=== PATIENT | male | born 1965 | race Caucasian/White ===

== ENCOUNTER → 2016-08-22 | Outpatient (CLI) | payer OTHER ==
[~2016-08-22] VITALS: Ht 172.7 cm; Wt 134.3 kg
[~2016-08-22] MED LIST: ALDA25TA PO; LIDOCAINE 2% INJ 100 MG/5 ML SDV (FOR ANES.) As Ordered ONE; NS 1,000 ML IV SCH; PROPOFOL 200 MG/20 ML VIAL As Ordered ONE
--- NOTE | 2016-08-22 12:32 | ROOR ---
Patient Name: Wilmer Meraz Procedure Date: 08/22/2016 12:12 PM Date of : 1965 Age: 50 Room: [facility] Gender: Male Note Status: Finalized Procedure: Colonoscopy to Cecum + Biopsy polypectomy Indications: Screening for colorectal malignant neoplasm Providers: Eric Ring MD Referring MD: 1. No Referring Physician 1. No Referring Physician, Admin. Requesting Provider: Medicines: Monitored Anesthesia Care Complications: No immediate complications. Procedure: Pre-Anesthesia Assessment: - The heart rate, respiratory rate, oxygen saturations, blood pressure, adequacy of pulmonary ventilation, and response to care were monitored throughout the procedure. The Colonoscope was introduced through the anus and advanced to the cecum, identified by appendiceal orifice and ileocecal valve. The colonoscopy was performed without difficulty. The patient tolerated the procedure well. The quality of the bowel preparation was excellent. Findings: The perianal and digital rectal examinations were normal. Non-bleeding internal hemorrhoids were found during retroflexion. The hemorrhoids were small and Grade I (internal hemorrhoids that do not prolapse). Multiple small and large-mouthed diverticula were found in the entire colon. A diminutive polyp was found in the cecum. The polyp was sessile. The polyp was removed with a cold biopsy forceps. Resection and retrieval were complete. The exam was otherwise without abnormality on direct and retroflexion views. Impression: - Non-bleeding internal hemorrhoids. - Diverticulosis in the entire examined colon. - One diminutive polyp in the cecum, removed with a cold biopsy forceps. Resected and retrieved. - The examination was otherwise normal on direct and retroflexion views. - The exam was otherwise normal to the cecum. Recommendation: - Patient has a contact number available for emergencies. The signs and symptoms of potential delayed complications were discussed with the patient. Return to normal activities tomorrow. Written discharge instructions were provided to the patient. - Discharge patient to home. - Continue present medications. - Await pathology results. - Telephone GI clinic for pathology results in 1 week. - Repeat colonoscopy in 5 years for surveillance based on pathology results. - Return to referring physician. - The findings and recommendations were discussed with the patient's family. Eric Ring MD Eric Ring MD 08/22/2016 12:32:34 PM This report has been signed electronically. Number of Addenda: 0 Note Initiated On: 08/22/2016 12:12 PM Estimated Blood Loss: Estimated blood loss: none.
[2016-08-22 13:00] VITALS: BP 132/88
== END | disposition home or self-care (01) ==
LOC: M OPP 11:16
PROVIDERS: ATTEND Internal Medicine Gastroenterology
DX: Z12.11 Encounter for screening for malignant neoplasm of colon (principal); K64.0 First degree hemorrhoids; K57.30 Diverticulosis of large intestine without perforation or abscess without bleeding; D12.0 Benign neoplasm of cecum; I10 Essential (primary) hypertension; R06.83 Snoring; Z79.899 Other long term (current) drug therapy

== ENCOUNTER 2018-06-22 10:44 | Emergency (ER) | payer OTHER ==
[2018-06-22 11:21] LABS: BASO # 0.1 10^3/uL (0.0-0.2); BASO % 1.1 % (0.0-1.0); EOS # 0.2 10^3/uL (0.0-0.50); EOS % 2.7 % (0.0-3.0); HEMATOCRIT 43.8 % (42.0-52.0); HEMOGLOBIN 15.1 g/dl (13.5-17.5); IMMATURE GRANULOCYTE % 0.7 % (0-3.0); LYMPH # 2.3 10^3/uL (1.5-4.5); MEAN CORPUSCULAR HEMOGLOBIN 31.1 pg (27.0-33.0); MEAN CORPUSCULAR HGB CONC 34.5 g/dl (32.0-36.5); MEAN CORPUSCULAR VOLUME 90.1 fl (80.0-96.0); MONO # 0.8 10^3/uL (0.0-0.8); MONO % 10.6 % (0.0-5.0); NEUTROPHILS % 53.9 % (36.0-66.0); PLATELET COUNT, AUTOMATED 253 10^3/uL (150-450); RED BLOOD COUNT 4.86 10^6/uL (4.30-6.10); RED CELL DISTRIBUTION WIDTH 12.4 % (11.5-14.5); WHITE BLOOD COUNT 7.4 10^3/uL (4.0-10.0)
[2018-06-22 11:31] LABS: INR 0.95; PROTHROMBIN TIME 12.8 SECONDS (12.1-14.4)
[2018-06-22 11:32] LABS: PARTIAL THROMBOPLASTIN TIME 25.8 SECONDS (25.4-37.6)
[2018-06-22 12:03] LABS: ALBUMIN 3.7 GM/DL (3.2-5.2); ALBUMIN/GLOBULIN RATIO 1.16 (1.00-1.93); ALKALINE PHOSPHATASE 94 U/L (45-117); ALT/SGPT 45 U/L (12-78); ANION GAP 7 MEQ/L (8-16); AST/SGOT 20 U/L (7-37); BILIRUBIN,DIRECT < 0.1 MG/DL (0.0-0.2); BILIRUBIN,TOTAL 0.3 MG/DL (0.2-1.0); BLOOD UREA NITROGEN 11 MG/DL (7-18); CARBON DIOXIDE LEVEL 27 MEQ/L (21-32); CHLORIDE LEVEL 106 MEQ/L (98-107); CPK CREATINE PHOSPHOKINASE 126 U/L (39-308); CREATININE FOR GFR 0.86 MG/DL (0.70-1.30); GLOMERULAR FILTRATION RATE > 60.0 (>56); GLUCOSE, FASTING 96 MG/DL (70-100); LIPASE 101 U/L (73-393); MB/CK RELATIVE INDEX 0.79 (< OR =4); POTASSIUM SERUM 4.1 MEQ/L (3.5-5.1); SODIUM LEVEL 140 MEQ/L (136-145); TOTAL PROTEIN 6.9 GM/DL (6.4-8.2); TROPONIN I < 0.02 NG/ML (< 0.10)
[2018-06-22 15:17] LABS: CPK CREATINE PHOSPHOKINASE 119 U/L (39-308); MB/CK RELATIVE INDEX 0.92 (< OR =4); TROPONIN I < 0.02 NG/ML (< 0.10)
[2018-06-22] MEDS: ASPIRIN 81 MG CHEW TABLET PO (16:07)
== END 2018-06-22 16:12 | disposition home or self-care (01) ==
LOC: M ED 10:44
DX: R07.89 Other chest pain (principal); Z82.3 Family history of stroke; M25.551 Pain in right hip; M25.561 Pain in right knee
CPT/HCPCS: 71046

== ENCOUNTER → 2019-08-16 | Outpatient (CLI) | payer OTHER ==
[~2019-08-16] MED LIST changes: -ALDA25TA PO; +ASPI81TA85 PO; -LIDOCAINE 2% INJ 100 MG/5 ML SDV (FOR ANES.) As Ordered ONE; -NS 1,000 ML IV SCH; -PROPOFOL 200 MG/20 ML VIAL As Ordered ONE; +SPIR1TAB34 PO
[2019-08-16 07:20] LABS: BASO # 0.1 10^3/uL (0.0-0.2); EOS # 0.2 10^3/uL (0.0-0.5); EOS % 3.1 % (0.0-3.0); HEMATOCRIT 48.8 % (42.0-52.0); HEMOGLOBIN 15.9 g/dl (13.5-17.5); LYMPH % 32.5 % (24.0-44.0); MEAN CORPUSCULAR HEMOGLOBIN 30.1 pg (27.0-33.0); MEAN CORPUSCULAR HGB CONC 32.6 g/dl (32.0-36.5); MEAN CORPUSCULAR VOLUME 92.2 fl (80.0-96.0); MONO # 0.7 10^3/uL (0.0-0.8); MONO % 10.6 % (0.0-5.0); NEUTROPHILS # 3.3 10^3/uL (1.5-8.5); NEUTROPHILS % 52.3 % (36.0-66.0); PLATELET COUNT, AUTOMATED 246 10^3/uL (150-450); RED BLOOD COUNT 5.29 10^6/uL (4.30-6.10); WHITE BLOOD COUNT 6.2 10^3/uL (4.0-10.0)
[2019-08-16 07:43] LABS: BLOOD UREA NITROGEN 14 MG/DL (7-18); CARBON DIOXIDE LEVEL 27 MEQ/L (21-32); CHLORIDE LEVEL 105 MEQ/L (98-107); CREATININE FOR GFR 1.01 MG/DL (0.70-1.30); GLOMERULAR FILTRATION RATE > 60.0 (>56); GLUCOSE, FASTING 98 MG/DL (70-100); POTASSIUM SERUM 4.1 MEQ/L (3.5-5.1); SODIUM LEVEL 139 MEQ/L (136-145)
== END ==
LOC: M LAB 06:46
PROVIDERS: ATTEND Physician Assistant
DX: E66.9 Obesity, unspecified (principal)

== ENCOUNTER → 2020-07-18 | Outpatient (CLI) | payer OTHER ==
[~2020-07-18] MED LIST changes: -ASPI81TA85 PO; +ASPI81TA86 PO
--- NOTE | 2020-07-18 16:06 | REP ---
INDICATION: SCIATICA RIGHT SIDE. COMPARISON: None. TECHNIQUE: Five views. FINDINGS: Lumbar vertebral body heights are preserved. There are bilateral pars interarticularis defects at the L3 vertebral body and this allows a subtle 2 mm L3-L4 spondylolisthesis. There is degenerative disc disease at L3-4 as well with disc space narrowing and anterior osteophyte formation. Mild degenerative narrowing is seen at the L4-5 disc. Other disc spaces are preserved. Sacrum and SI joints are intact. Pedicles and posterior elements are otherwise intact. There are dystrophic calcifications in the prostate. There is advanced osteoarthritis affecting the right hip with large subcortical cyst formation and osteophyte formation in the femoral head on the right. Some subcortical cyst formation is seen in the acetabulum as well. Psoas margins are symmetric. Bowel gas pattern is unremarkable. There is minimal sclerotic change of the SI joints. IMPRESSION: Bilateral L3 spondylolysis with a grade 1 2 mm L3-4 spondylolisthesis and degenerative disc disease at this level. Mild degenerative disc changes are noted at L4-5 as well. <Electronically signed by Nathaniel Weiss > 07/18/20 [id number]
== END ==
LOC: M WUC 11:34
PROVIDERS: ATTEND Internal Medicine
DX: M54.31 Sciatica, right side (principal); M51.36 Other intervertebral disc degeneration, lumbar region; M47.896 Other spondylosis, lumbar region; M43.16 Spondylolisthesis, lumbar region

== ENCOUNTER → 2020-08-26 | Outpatient (CLI) | payer SELFPAY | LOC: M LABSMTC 08:06 | PROVIDERS: ATTEND Pediatrics | DX: Z20.822 Contact with and (suspected) exposure to COVID-19 (principal) ==

== ENCOUNTER 2020-08-30 09:08 | Emergency (ER) | payer OTHER ==
[~2020-08-30] VITALS: Ht 172.7 cm; Wt 140.2 kg
[2020-08-30] MEDS ORDERED: IBUP200C33 PO (09:22)
--- OUTSIDE RECORDS SUMMARY | 2020-08-30 09:22 | CCD | Continuity of Care Document ---
Author Author Wilmer VALADEZ [facility] Organization Unknown Address [address] [place] [address] Phone [phone] Problems Description No Information Available Social History Type Date Description Comments Sex Unknown Smokeless Tobacco Former Smokeless Tobacco User [id number] ETOH Use Rarely consumes beer 12 BEER A Y EAR Tobacco Use End: 08/10/06 Formerly used smokeless tobacco Recreational Drug Use Denies Drug Use Allergies, Adverse Reactions, Alerts Description No Known Drug Allergies Medications Active Medications SIG Qnty Indications Ordering Provide r Date Prednisone 10mg Tablets 2 po daily 20tabs Abiel Plascencia M.D. 08/01/2020 Cyclobenzaprine HCL 10mg Tablets take one tablet by mouth at bedtime as needed 30tabs Katherine Plascencia M.D. 07/18/2020 History Medications Naprosyn 500mg Tablets 1 by mouth twice a day 60tabs Abiel Plascencia M.D. 07/18/20 20 - 08/01/2020 Immunizations Description No Information Available Vital Signs Date Vital Result Comment 08/15/2020 9:25am BP Systolic 134 mmHg BP Diastolic 90 mmHg Body Temperature 97.8 F Heart Rate 103 /min Respiratory Rate 16 /min Height 68 inches 5'8" Weight 308.00 lb [place] Body Weight 154 lb BMI (Body Mass Index) 46.8 kg/m2 O2 % BldC Oximetry 97 % 08/01/2020 10:58am BP Systolic 128 mmHg BP Diastolic 88 mmHg Body Temperature 98.6 F Heart Rate 88 /min Respiratory Rate 18 /min Height 68 inches 5'8" Weight 306.00 lb [place] Body Weight 154 lb BMI (Body Mass Index) 46.5 kg/m2 O2 % BldC Oximetry 97 % Results Test Acquired Date Facility Test Result H/L Range Note Laboratory test finding 08/15/2020 [facility] PSA Total <pending> CBC 08/15/2020 [facility] WBC 6.2 10E3/uL 4.1 - 10.9 1 RBC 4.95 10E6/uL 4.20 - 6.30 HGB 15.6 g/dL 12.0 - 18.0 HCT 45.3 % 37.0 - 51.0 MCV 91.5 fL 80.0 - 97.0 MCH 31.5 pg 26.0 - 32.0 MCHC 34.4 g/dL 31.0 - 36.0 PLT 228 10E3/uL 140 - 440 RDW-CV 13.2 % 11.5 - 14.5 Lym% 25.2 % 10.0 - 58.5 Neut% 65.9 % 37.0 - 92.0 MXD% 8.9 % 0.1 - 24.0 Lym# 1.6 10E3/uL 0.6 - 4.1 Neut# 4.0 % 2.0 - 7.8 MXD# 0.6 10E3/uL 0.0 - 1.8 MPV 10.5 fL 9.0 - 13.0 CMP 08/15/2020 [facility] Glu 110 mg/dL 70 - 110 BUN 12 mg/dL 8 - 23 Creat 0.9 mg/dL 0.7 - 1.2 BUN/Creatinine Ratio 13.3 CALC Na 138 mmol/L 136 - 145 K 4.1 mmol/L 3.5 - 5.1 CL 104.8 mmol/L 98.0 - 107.0 Co2 21.0 mmol/L Low 22.0 - 29.0 CA 9.0 mg/dL 8.6 - 10.2 TP 6.6 g/dL 6.6 - 8.7 Alb 4.3 g/dL 3.5 - 5.2 A/G Ratio 1.9 CALC Globulin 2.3 CALC Alp 83.1 U/L 40 - 129 Alt (SGPT) 43 U/L High 0 - 41 Ast (Sgot) 23 U/L 0 - 40 Tbili 0.54 mg/dL 0.0 - 1.2 Osmolality-Calculated 277.0 CALC Anion Gap 17 mmol/L eGFR 112 # Calc 2 eGFR Non-Afr. [place]an 96 # Calc 3 Lipid Panel 08/15/2020 [facility] Chol 208 mg/dL High 0 - 200 Trig 166 mg/dL 35 - 200 HDL 46 mg/dL 35 - 55 LDL_C 128 Calc 75 - 129 Cho/HDL Ratio 4.5 CALC 1 NORMAL RANGES Age WBC RBC HGB HCT MCV PLT Adult M 4.1-10.9 4.20-6.30 12.0-18.0 37.0-51.0 80-97 140-440 Adult F 4.1-10.9 4.04-5.48 12.0-18.0 37.0-51.0 80-97 140-440 0 -1 Yr 5.0-20.0 3.9-5.9 15-18 MV: 44 MV: 91 MV: 277 2-9 Yr. 6.0-17.0 3.8-5.4 11-13 MV: 37 MV: 78 MV: 300 10 Yrs. 5.0-13.0 3.8-5.4 12-15 MV: 39 MV: 80 MV: 250 NOTE: * FOR ADULT BLACK MALES AND FEMALES, NORMAL WBC IS 2.9-7.7 K/ML * FOR ADULT BLACK MALES AND FEMALES, NORMAL RBC,HGB, AND HCT IS 5% LESS SOURCE FOR DATA: [employer] 1800 OPERATION MANUAL( AUTOMATED BLOOD COUNTS AND DIFF.) APPENDIX B-3 CHRONIC KIDNEY DISEASE STAGING PER NKF: MALE GFR INTERPRETATION: 20-49 YRS: >60 mL/min Normal 50-59 YRS: >56 mL/min Normal 60-69 YRS: >49 mL/min Normal 70-79 YRS: >42 mL/min Normal 80 and above >35 mL/min Normal FEMALE GRF INTERPRETATION: 20-39 YRS: >60 mL/min Normal 40-49 YRS: >58 mL/min Normal 50-59 YRS: >51 mL/min Normal 60-69 YRS: >45 mL/min Normal 70-79 YRS: >39 mL/min Normal 80 and above >32 mL/min NormalCLASSIFICATION CHOLESTEROL FOR ADULTS CHILDREN/ADOLESCENTS* DESIRABLE: <200 MG/DL <170 MG/DL BORDER-LINE HIGH RISK: 200-239 MG/DL 170-199 MG/DL HIGH RISK: >240 MG/DL >200 MG/DL CLASS. FOR PRIMARY LDL CHOL PREVENTION: LDL CHOL-CHILD/ADOLESCENTS* DESIRABLE: <130 MG/DL <110 MG/DL BORDERLINE-HIGH RISK: 130-159 MG/DL 110-129 MG/DL HIGH RISK: >160 MG/DL >130 MG/DL *CHILDREN AND ADOLESCENTS REPRESENTS INDIVIDUALA AGED 2-19 YEARS EXCLUSIVE. 2 CKD-EPI 3 CKD-EPI Procedures Description No Information Available Medical Devices Description No Information Available Encounters Type Date Location Provider Dx Diagnosis Office Visit 08/15/2020 9:30a [facility] Martin Valadez, A Z00.01 Encounter for general adult medical exam w abnormal findings E66.9 Obesity, unspecified R35.1 Nocturia R03.0 Elevated blood-pressure read ing, w/o diagnosis of htn Office Visit 08/01/2020 9:15a [facility] Abiel Plascencia M. D. M54.31 Sciatica, right side Office Visit 07/18/2020 11:30a [facility] Abiel Plascencia M. D. M54.31 Sciatica, right side Assessments Date Code Description Provider 08/15/2020 Z00.01 Encounter for genera l adult medical examination with abnormal findings Martin Valadez, RPA 08/15/2020 E66.9 Obesity, unspecified Paulo Valadez, RPA 08/15/2020 R35.1 Nocturia Martin Valadez, RPA 08/15/2020 R03.0 Elevated blood-press ure reading, without diagnosis of hypertension Martin Valadez, RPA 08/01/2020 M54.31 Sciatica, right side Katherine Plascencia M.D. 07/18/2020 M54.31 Sciatica, right side Temo, S cott H, M.D. Plan of Treatment Future Appointment(s):* 11/21/2020 10:00 am - Martin Valadez RPA at [facility] Functional Status Description No Information Available Mental Status Description No Information Available Referrals Refer to Reason for Referral Status Appt Date [facility] Orthopedics right thigh pain- eval and rx Sent [address] [place] [address] [phone]
--- OUTSIDE RECORDS SUMMARY | 2020-08-30 09:22 | CCD | Continuity of Care Document ---
Author Author Wilmer VALADEZ [facility] Organization Unknown Address [address] [address] Phone [phone] Problems Description No Information Available Social History Type Date Description Comments Sex Unknown Smokeless Tobacco Former Smokeless Tobacco User [id number] ETOH Use Rarely consumes beer 12 BEER [...] Height 68 inches 5'8" Weight 308.00 lb [place] Body Weight 154 lb BMI (Body Mass Index) 46.8 kg/m2 O2 % BldC Oximetry 97 % 08/01/2020 10:58am BP Systolic 128 mmHg BP Diastolic 88 mmHg Body Temperature 98.6 F Heart Rate 88 /min Respiratory Rate 18 /min Height 68 inches 5'8" Weight 306.00 lb [place] Body Weight 154 lb BMI (Body Mass Index) 46.5 kg/m2 O2 % BldC Oximetry 97 % Results Test Acquired Date Facility Test Result H/L Range Note Laboratory test finding 08/15/2020 [facility] PSA, Total 0.60 ng/mL 0.0 - 4.0 CBC 08/15/2020 [facility] WBC 6.2 10E3/uL 4.1 [...] eGFR 112 # Calc 2 eGFR Non-Afr. [place] 96 # Calc 3 Lipid Panel 08/15/2020 [...] HCT IS 5% LESS SOURCE FOR DATA: [employer] 1800 OPERATION MANUAL( AUTOMATED BLOOD COUNTS AND [...] Provider Dx Diagnosis Office Visit 08/15/2020 9:30a [facility] Martin Valadez, A Z00.01 Encounter for general adult medical exam w abnormal findings E66.9 Obesity, unspecified R35.1 Nocturia R03.0 Elevated blood-pressure read ing, w/o diagnosis of htn Office Visit 08/01/2020 9:15a [facility] Abiel Plascencia M. D. M54.31 Sciatica, right side Office Visit 07/18/2020 11:30a [facility] Abiel Plascencia M. D. M54.31 Sciatica, [...] Katherine Plascencia M.D. 07/18/2020 M54.31 Sciatica, right Katherine Townsend M.D. Plan of Treatment Future Appointment(s):* 11/21/2020 10:00 am - Martin Valadez RPA at [facility] Functional Status Description No Information Available Mental Status Description No Information Available Referrals Refer to Reason for Referral Status Appt Date [facility] Orthopedics right thigh pain- eval and rx Sent [address] [facility] [address] [place] [address] [phone]
--- OUTSIDE RECORDS SUMMARY | 2020-08-30 09:22 | CCD | Continuity of Care Document ---
Author Author Wilmer HAN M.D. Organization Unknown Address [address] [address] Phone [phone] Problems Description No Information Available Social History Type Date Description Comments Sex Unknown Smokeless Tobacco Former Smokeless Tobacco User [id number] ETOH Use Rarely consumes beer 12 BEER A Y EAR Tobacco Use End: 08/10/06 Formerly used smokeless tobacco Recreational Drug Use Denies Drug Use Allergies, Adverse Reactions, Alerts Description No Known Drug Allergies Medications Active Medications SIG Qnty Indications Ordering Provide r Date Prednisone 10mg Tablets 4 by mouth daily x2 then 3 daily x2 then 2 daily x2 then one daily 20tabs Abiel Han M.D. 08/01/2020 Cyclobenzaprine HCL 10mg Tablets take one tablet by mouth at bedtime as needed 30tabs Katherine Han M.D. 07/18/2020 History Medications Naprosyn 500mg Tablets 1 by mouth twice a day 60tabs Abiel Han M.D. 07/18/20 20 - 08/01/2020 Immunizations Description No Information Available Vital Signs Date Vital Result Comment 08/01/2020 10:58am BP Systolic 128 mmHg BP Diastolic 88 mmHg Body Temperature 98.6 F Heart Rate 88 /min Respiratory Rate 18 /min Height 68 inches 5'8" Weight 306.00 lb [place] Body Weight 154 lb BMI (Body Mass Index) 46.5 kg/m2 O2 % BldC Oximetry 97 % 07/18/2020 11:49am BP Systolic 124 mmHg BP Diastolic 92 mmHg Body Temperature 98.3 F Heart Rate 90 /min Respiratory Rate 18 /min Height 68 inches 5'8" Weight 310.00 lb [place] Body Weight 154 lb BMI (Body Mass Index) 47.1 kg/m2 O2 % BldC Oximetry 98 % Results Description No Information Available Procedures Description No Information Available Medical Devices Description No Information Available Encounters Type Date Location Provider Dx Diagnosis Office Visit 08/01/2020 9:15a [place] [facility] Abiel Han M. D. M54.31 Sciatica, right side Office Visit 07/18/2020 11:30a [place] [facility] Abiel Han M. D. M54.31 Sciatica, right side Assessments Date Code Description Provider 08/01/2020 M54.31 Sciatica, right side Katherine Han M.D. 07/18/2020 M54.31 Sciatica, right side Katherine Han M.D. Plan of Treatment Future Appointment(s):* 08/15/2020 9:30 am - Martin Valadez RPA at [facility] Functional Status Description No Information Available Mental Status Description No Information Available Referrals Refer to Reason for Referral Status Appt Date [facility] Orthopedics right thigh pain- eval and rx Sent [address] [place] [address] [phone]
--- OUTSIDE RECORDS SUMMARY | 2020-08-30 09:22 | CCD | Continuity of Care Document ---
Author Author Wilmer HAN M.D. Organization Unknown Address [address] [address] Phone [phone] Problems Description No Information Available Social History Type Date Description Comments Sex Unknown Smokeless Tobacco Former Smokeless Tobacco User [id number] ETOH Use Rarely consumes beer 12 BEER A Y EAR Tobacco Use End: 08/10/06 Formerly used smokeless tobacco Recreational Drug Use Denies Drug Use Allergies, Adverse Reactions, Alerts Description No Known Drug Allergies Medications Active Medications SIG Qnty Indications Ordering Provide r Date Naprosyn 500mg Tablets 1 by mouth twice a day 60tabs Abiel Han M.D. 07/18/20 20 Cyclobenzaprine HCL 10mg Tablets take one tablet by mouth at bedtime as needed 30tabs Katherine Han M.D. 07/18/2020 Immunizations Description No Information Available Vital Signs Date Vital Result Comment 07/18/2020 11:49am BP Systolic 124 mmHg BP Diastolic 92 mmHg Body Temperature 98.3 F Heart Rate 90 /min Respiratory Rate 18 /min Height 68 inches 5'8" Weight 310.00 lb [place] Body Weight 154 lb BMI (Body Mass Index) 47.1 kg/m2 O2 % BldC Oximetry 98 % 08/01/2019 2:59pm BP Systolic 136 mmHg BP Diastolic 80 mmHg Body Temperature 97.8 F Heart Rate 88 /min Respiratory Rate 18 /min Height 68 inches 5'8" Weight 281.00 lb [place] Body Weight 154 lb BMI (Body Mass Index) 42.7 kg/m2 O2 % BldC Oximetry 98 % Results Description No Information Available Procedures Description No Information Available Medical Devices Description No Information Available Encounters Type Date Location Provider Dx Diagnosis Office Visit 07/18/2020 11:30a [place] [facility] Abiel Han M. D. M54.31 Sciatica, right side Assessments Date Code Description Provider 07/18/2020 M54.31 Sciatica, right side Katherine Han M.D. Plan of Treatment Future Appointment(s):* 08/15/2020 9:30 am - Martin Valadez RPA at [facility] Functional Status Description No Information Available Mental Status Description No Information Available Referrals Description No Information Available
--- OUTSIDE RECORDS SUMMARY | 2020-08-30 09:22 | CCD | Continuity of Care Document ---
Author Author Wilmer HAN M.D. Organization Unknown Address [address] [address] Phone [phone] Problems Description No Information Available Social History Type Date Description Comments Sex Unknown Smokeless Tobacco Former Smokeless Tobacco User [id number] ETOH Use Rarely consumes beer 12 BEER [...] Height 68 inches 5'8" Weight 310.00 lb [place] Body Weight 154 lb BMI (Body Mass Index) 47.1 kg/m2 O2 % BldC Oximetry 98 % 08/01/2019 2:59pm BP Systolic 136 mmHg BP Diastolic 80 mmHg Body Temperature 97.8 F Heart Rate 88 /min Respiratory Rate 18 /min Height 68 inches 5'8" Weight 281.00 lb [place] Body Weight 154 lb BMI (Body Mass Index) 42.7 kg/m2 O2 % BldC Oximetry 98 % Results Description No Information Available Procedures Description No Information Available Medical Devices Description No Information Available Encounters Type Date Location Provider Dx Diagnosis Office Visit 08/01/2020 9:15a [place] [facility] Abiel Han M. D. M54.31 Sciatica, right side Office Visit 07/18/2020 11:30a [place] [facility] Abiel Han M. D. M54.31 Sciatica, right side Assessments Date Code Description Provider 08/01/2020 M54.31 Sciatica, right side Katherine Han M.D. 07/18/2020 M54.31 Sciatica, right side Katherine Han M.D. Plan of Treatment Future Appointment(s):* 08/15/2020 9:30 am - Martin Valadez RPA at [facility] Functional Status Description No Information Available Mental Status Description No Information Available Referrals Refer to Reason for Referral Status Appt Date [facility] Orthopedics right thigh pain- eval and rx Created [address] [place] [address] [phone]
--- OUTSIDE RECORDS SUMMARY | 2020-08-30 09:22 | CCD | Continuity of Care Document ---
Author Author Wilmer VALADEZ [facility] Organization Unknown Address [address] [place] [address] Phone [phone] Problems Description No Information Available Social History Type Date Description Comments Sex Unknown Smokeless Tobacco Former Smokeless Tobacco User [phone] ETOH Use Rarely consumes beer 12 BEER A Y EAR Tobacco Use End: 08/10/06 Formerly used smokeless tobacco Recreational Drug Use Denies Drug Use Allergies, Adverse Reactions, Alerts Description No Known Drug Allergies Medications Active Medications SIG Qnty Indications Ordering Provide r Date Prednisone 10mg Tablets 2 po daily 20tabs Abiel Plascencai M.D. 08/01/2020 Cyclobenzaprine HCL 10mg Tablets take [...] Height 68 inches 5'8" Weight 308.00 lb [place] Body Weight 154 lb BMI (Body Mass Index) 46.8 kg/m2 O2 % BldC Oximetry 97 % 08/01/2020 10:58am BP Systolic 128 mmHg BP Diastolic 88 mmHg Body Temperature 98.6 F Heart Rate 88 /min Respiratory Rate 18 /min Height 68 inches 5'8" Weight 306.00 lb [place] Body Weight 154 lb BMI (Body Mass [...] eGFR 112 # Calc 2 eGFR Non-Afr. [place]ian 96 # Calc 3 Lipid Panel 08/15/2020 [...] HCT IS 5% LESS SOURCE FOR DATA: [employer] 1800 OPERATION MANUAL( AUTOMATED BLOOD COUNTS AND [...] Provider Dx Diagnosis Office Visit 08/15/2020 9:30a [place] [facility] Martin Valadez, A Z00.01 Encounter for general adult medical exam w abnormal findings E66.9 Obesity, unspecified R35.1 Nocturia R03.0 Elevated blood-pressure read ing, w/o diagnosis of htn Office Visit 08/01/2020 9:15a [place] [facility] Abiel Plascencia M. D. M54.31 Sciatica, right side Office Visit 07/18/2020 11:30a [place] [facility] Abiel Plascencia M. D. M54.31 Sciatica, [...] 10:00 am - Martin Valadez RPA at [place] [facility] Functional Status Description No Information Available Mental Status Description No Information Available Referrals Refer to Reason for Referral Status Appt Date [facility] Orthopedics right thigh pain- eval and rx Sent [address] [place] [address] [phone]
--- OUTSIDE RECORDS SUMMARY | 2020-08-30 09:22 | CCD | Continuity of Care Document ---
Author Author Wilmer VALADEZ [facility] Unknown Address [address] [address] Phone [phone] Problems Description No Information Available Social History Type Date Description Comments Sex Unknown Smokeless Tobacco Former Smokeless Tobacco User [id number] ETOH Use Rarely consumes beer 12 BEER [...] Height 68 inches 5'8" Weight 308.00 lb [place] Body Weight 154 lb BMI (Body Mass Index) 46.8 kg/m2 O2 % BldC Oximetry 97 % 08/01/2020 10:58am BP Systolic 128 mmHg BP Diastolic 88 mmHg Body Temperature 98.6 F Heart Rate 88 /min Respiratory Rate 18 /min Height 68 inches 5'8" Weight 306.00 lb [place] Body Weight 154 lb BMI (Body Mass Index) 46.5 kg/m2 O2 % BldC Oximetry 97 % Results Description No Information Available Procedures Description No Information Available Medical Devices Description No Information Available Encounters Type Date Location Provider Dx Diagnosis Office Visit 08/01/2020 9:15a [place] [facility] Abiel Plascencia M. D. M54.31 Sciatica, right side Office Visit 07/18/2020 11:30a [place] [facility] Abiel Plascencia M. D. M54.31 Sciatica, [...] Plascencia M.D. 07/18/2020 M54.31 Sciatica, right side Katherine Plascencia M.D. Plan of Treatment No Information Available Functional Status Description No Information Available Mental Status Description No Information Available Referrals Refer to Reason for Referral Status Appt Date [facility] Orthopedics right thigh pain- eval and rx Sent [address] [place] [address] [phone]
--- OUTSIDE RECORDS SUMMARY | 2020-08-30 09:23 | CCD | Continuity of Care Document ---
Author Author Wilmer HAN M.D. Organization Unknown Address [address] [place] [address] Phone [phone] Problems Description No Information Available Social History Type Date Description Comments Sex Unknown Smokeless Tobacco Former Smokeless Tobacco User [id number] ETOH Use Rarely consumes beer 12 BEER [...] Available Vital Signs Date Vital Result Comment 08/01/2019 2:59pm BP Systolic 136 mmHg BP Diastolic 80 mmHg Body Temperature 97.8 F Heart Rate 88 /min Respiratory Rate 18 /min Height 68 inches 5'8" Weight 281.00 lb [place] Body Weight 154 lb BMI (Body Mass Index) 42.7 kg/m2 O2 % BldC Oximetry 98 % Results Description No Information Available Procedures Description No Information Available Medical Devices Description No Information Available Encounters Type Date Location Provider Dx Diagnosis Office Visit 07/18/2020 11:30a [place] [facility] Abiel Han M. D. M54.31 Sciatica, right side Assessments Date Code Description Provider 07/18/2020 M54.31 Sciatica, right side Katherine Han M.D. Plan of Treatment Future Appointment(s):* 08/15/2020 9:30 am - Martin Valadez RPA at [facility] Functional Status Description No Information Available Mental Status Description No Information Available Referrals Description No Information Available
--- OUTSIDE RECORDS SUMMARY | 2020-08-30 09:23 | CCD | Continuity of Care Document ---
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 Name Role Phone [employer] AUTM [phone] Problems Active Problems Provider Date Generalized abdominal pain Miroslava Mendoza Onset: 2009 Social History Type Date Description Comments Sex Unknown Smokeless Tobacco Quit 2006 ETOH Use Rarely consumes alcohol Tobacco Use Start: Unknown Patient has never smoked Smoking Status Reviewed: 06/07/20 Patient has never smoked Allergies, Adverse Reactions, Alerts Description No Known Drug Allergies Medications Active Medications SIG Qnty Indications Ordering Provide r Date Ibuprofen 200mg Capsules last dose last night Unknown Dayquil last dose 6:30 am today Unknown 0 Night Time Cold/Flu Relief 15-6.25-325mg Capsules Unknown Immunizations Description No Information Available Vital Signs Date Vital Result Comment 06/07/2020 1:22pm BP Systolic 149 mmHg BP Diastolic 102 mmHg Heart Rate 84 /min Respiratory Rate 16 /min O2 % BldC Oximetry 97 % Body Temperature 97.8 F Weight 270.00 lb Height 68 inches 5'8" BMI (Body Mass Index) 41.0 kg/m2 Pain Level 3 07/19/2018 8:24am BP Systolic 146 mmHg BP Diastolic 96 mmHg Heart Rate 88 /min O2 % BldC Oximetry 96 % Body Temperature 98.6 F Weight 275.00 lb Height 68 inches 5'8" BMI (Body Mass Index) 41.8 kg/m2 Pain Level 5 Results Description No Information Available Procedures Description No Information Available Medical Devices Description No Information Available Encounters Type Date Location Provider Dx Diagnosis Office Visit 06/07/2020 1:45p Main Office JOHNNY Henriquez J06 .9 Acute upper respiratory infection, unspecified Z20.828 Contact w and exposure to ot h viral communicable diseases Assessments Date Code Description Provider 06/07/2020 J06.9 Acute upper respiratory infectio n, unspecified JOHNNY Henriquez 06/07/2020 Z20.828 Contact with and (figueroa spected) exposure to other viral communicable diseases JOHNNY Henriquez Plan of Treatment No Information Available Functional Status Description No Information Available Mental Status Description No Information Available Referrals Description No Information Available
--- OUTSIDE RECORDS SUMMARY | 2020-08-30 09:23 | CCD ---
Author Author [facility] Organization [facility] Address Unknown Phone Unavailable Care Team Providers Care Cv/Cvn Cv Tsc System Operator Name Role Phone Mariaa HAN MD Unavailable Unavailable Mariaa HAN MD Unavailable Unavailable Mariaa HAN MD Unavailable Unavailable Mairaa HAN MD Unavailable Unavailable Mariaa HAN MD Unavailable Unavailable Mariaa HAN MD Unavailable Unavailable Mariaa HAN MD Unavailable Unavailable Mariaa HAN MD Unavailable Unavailable Mariaa HAN MD Unavailable Unavailable Mariaa HAN MD Unavailable Unavailable Mariaa HAN MD Unavailable Unavailable Mariaa HAN MD Unavailable Unavailable Mariaa HAN MD Unavailable Unavailable Mariaa HAN MD Unavailable Unavailable Mariaa HAN MD Unavailable Unavailable Mariaa HAN MD Unavailable Unavailable Mariaa HAN MD Unavailable Unavailable Mariaa HAN MD Unavailable Unavailable Mariaa HAN MD Unavailable Unavailable Mariaa HAN MD Unavailable Unavailable Mariaa HAN MD Unavailable Unavailable Mariaa HAN MD Unavailable Unavailable Mariaa HAN MD Unavailable Unavailable Mariaa HAN MD Unavailable Unavailable Mariaa HAN MD Unavailable Unavailable Mariaa HAN MD Unavailable Unavailable Mariaa HAN MD Unavailable Unavailable Mariaa HAN MD Unavailable Unavailable Mariaa HAN MD Unavailable Unavailable Mariaa HAN MD Unavailable Unavailable Mariaa HAN MD Unavailable Unavailable Mariaa HAN MD Unavailable Unavailable Mariaa HAN MD Unavailable Unavailable Mariaa HAN MD Unavailable Unavailable Mariaa HAN MD Unavailable Unavailable Mariaa HAN MD Unavailable Unavailable Mariaa HAN MD Unavailable Unavailable Mariaa HAN MD Unavailable Unavailable Mariaa HAN MD Unavailable Unavailable Mariaa HAN MD Unavailable Unavailable Mariaa HAN MD Unavailable Unavailable Mariaa HAN MD Unavailable Unavailable Mariaa HAN MD Unavailable Unavailable Mariaa HAN MD Unavailable Unavailable Mariaa HAN MD Unavailable Unavailable Mariaa HAN MD Unavailable Unavailable Mariaa HAN MD Unavailable Unavailable Mariaa HAN MD Unavailable Unavailable Mariaa HAN MD Unavailable Unavailable Mariaa HAN MD Unavailable Unavailable Mariaa HAN MD Unavailable Unavailable Mariaa HAN MD Unavailable Unavailable Mariaa HAN MD Unavailable Unavailable Mariaa HAN MD Unavailable Unavailable Mariaa HAN MD Unavailable Unavailable Mariaa HAN MD Unavailable Unavailable Mariaa HAN MD Unavailable Unavailable Mariaa HAN MD Unavailable Unavailable Maraia HAN MD Unavailable Unavailable Mariaa HAN MD Unavailable Unavailable Mariaa HAN MD Unavailable Unavailable Mariaa HAN MD Unavailable Unavailable Mariaa HAN MD Unavailable Unavailable Mariaa HAN MD Unavailable Unavailable Mariaa HAN MD Unavailable Unavailable Mariaa HAN MD Unavailable Unavailable Mariaa HAN MD Unavailable Unavailable Mariaa HAN MD Unavailable Unavailable Mariaa HAN MD Unavailable Unavailable Mariaa HAN MD Unavailable Unavailable Mariaa HAN MD Unavailable Unavailable Mariaa HAN MD Unavailable Unavailable Mariaa HAN MD Unavailable Unavailable Mariaa HAN MD Unavailable Unavailable Mariaa HAN MD Unavailable Unavailable Mariaa HAN MD Unavailable Unavailable Allyson, D William PA Unavailable Unavailable Allyson, D William PA Unavailable Unavailable Allyson, D William PA Unavailable Unavailable Allyson, D William PA Unavailable Unavailable Allyson, D William PA Unavailable Unavailable Allyson, D William PA Unavailable Unavailable Allyson, D William PA Unavailable Unavailable Allyson, D William PA Unavailable Unavailable Allyson, D William PA Unavailable Unavailable Allyson, D William PA Unavailable Unavailable Allyson, D William PA Unavailable Unavailable Allyson, D William PA Unavailable Unavailable Allyson, D William PA Unavailable Unavailable Allyson, D William PA Unavailable Unavailable Allyson, D William PA Unavailable Unavailable Allyson, D William PA Unavailable Unavailable Allyson, D William PA Unavailable Unavailable Allyson, D William PA Unavailable Unavailable Allyson, D William PA Unavailable Unavailable Allyson, D William PA Unavailable Unavailable Allyson, D William PA Unavailable Unavailable Allyson, D William PA Unavailable Unavailable Allyson, D William PA Unavailable Unavailable Allyson, D William PA Unavailable Unavailable Allyson, D William PA Unavailable Unavailable Allyson, D William PA Unavailable Unavailable Allyson, D William PA Unavailable Unavailable Allyson, D William PA Unavailable Unavailable Allyson, D William PA Unavailable Unavailable Allyson, D William PA Unavailable Unavailable Allyson, D William PA Unavailable Unavailable Allyson, D William PA Unavailable Unavailable Allyson, D William PA Unavailable Unavailable Allyson, D William PA Unavailable Unavailable Allyson, D William PA Unavailable Unavailable Allyson, D William PA Unavailable Unavailable Allyson, D William PA Unavailable Unavailable Allyson, D William PA Unavailable Unavailable Allyson, D William PA Unavailable Unavailable Allyson, D William PA Unavailable Unavailable Allyson, D William PA Unavailable Unavailable Allyson, D William PA Unavailable Unavailable Allyson, D William PA Unavailable Unavailable Allyson, D William PA Unavailable Unavailable Allyson, D William PA Unavailable Unavailable Allyson, D William PA Unavailable Unavailable Allyson, D William PA Unavailable Unavailable Allyson, D William PA Unavailable Unavailable Allyson, D William PA Unavailable Unavailable Allyson, D William PA Unavailable Unavailable Allyson, D William PA Unavailable Unavailable Allyson, D William PA Unavailable Unavailable Allyson, D William PA Unavailable Unavailable Allyson, D William PA Unavailable Unavailable Allyson, D William PA Unavailable Unavailable Allyson, D William PA Unavailable Unavailable Allyson, D William PA Unavailable Unavailable Allyson, D William PA Unavailable Unavailable Allyson, D William PA Unavailable Unavailable Allyson, D William PA Unavailable Unavailable Allyson, D William PA Unavailable Unavailable Allyson, D William PA Unavailable Unavailable Allyson, D William PA Unavailable Unavailable LETTIERE, A WILLIAM PA Unavailable Unavailable LETTIERE, A WILLIAM PA Unavailable Unavailable LETTIERE, A WILLIAM PA Unavailable Unavailable LETTIERE, A WILLIAM PA Unavailable Unavailable LETTIERE, A WILLIAM PA Unavailable Unavailable LETTIERE, A WILLIAM PA Unavailable Unavailable LETTIERE, A WILLIAM PA Unavailable Unavailable LETTIERE, A WILLIAM PA Unavailable Unavailable LETTIERE, A WILLIAM PA Unavailable Unavailable LETTIERE, A WILLIAM PA Unavailable Unavailable LETTIERE, A WILLIAM PA Unavailable Unavailable LETTIERE, A WILLIAM PA Unavailable Unavailable LETTIERE, A WILLIAM PA Unavailable Unavailable LETTIERE, A WILLIAM PA Unavailable Unavailable LETTIERE, A WILLIAM PA Unavailable Unavailable LETTIERE, A WILLIAM PA Unavailable Unavailable LETTIERE, A WILLIAM PA Unavailable Unavailable LETTIERE, A WILLIAM PA Unavailable Unavailable LETTIERE, A WILLIAM PA Unavailable Unavailable LETTIERE, A WILLIAM PA Unavailable Unavailable LETTIERE, A WILLIAM PA Unavailable Unavailable LETTIERE, A WILLIAM PA Unavailable Unavailable LETTIERE, A WILLIAM PA Unavailable Unavailable LETTIERE, A WILLIAM PA Unavailable Unavailable LETTIERE, A WILLIAM PA Unavailable Unavailable LETTIERE, A WILLIAM PA Unavailable Unavailable LETTIERE, A WILLIAM PA Unavailable Unavailable LETTIERE, Jeovany WILLIAM TURNER Unavailable Unavailable LETTIERE, Jeovany WILLIAM TURNER Unavailable Unavailable Re-disclosure Warning The records that you are about to access may contain information from federally-assisted alcohol or drug abuse programs. If such information is present, then the following federally mandated warning applies: This information has been disclosed to you from records protected by federal confidentiality rules (42 CFR part 2). The federal rules prohibit you from making any further disclosure of this information unless further disclosure is expressly permitted by the written consent of the person to whom it pertains or as otherwise permitted by 42 CFR part 2. A general authorization for the release of medical or other information is NOT sufficient for this purpose. The Federal rules restrict any use of the information to criminally investigate or prosecute any alcohol or drug abuse patient.The records that you are about to access may contain highly sensitive health information, the redisclosure of which is protected by Article 27-F of the [facility] Public Health law. If you continue you may have access to information: Regarding HIV / AIDS; Provided by facilities licensed or operated by the [facility] Office of Mental Health; or Provided by the [facility] Office for People With Developmental Disabilities. If such information is present, then the following [facility] mandated warning applies: This information has been disclosed to you from confidential records which are protected by state law. State law prohibits you from making any further disclosure of this information without the specific written consent of the person to whom it pertains, or as otherwise permitted by law. Any unauthorized further disclosure in violation of state law may result in a fine or longterm sentence or both. A general authorization for the release of medical or other information is NOT sufficient authorization for further disc losure. Family History Family Member Name Family Member Gender Family Member Status Date o f Status Description Data Source(s) Unknown Unknown Problem [facility] ([facility] Unknown Female Problem [facility] ([facility]) Encounters Encounter Providers Location Date Indications Data Source(s ) Outpatient Attender: William TURNER [place] [facility] 01/2021 08:30:00 AM EST [facility] ([facility] Outpatient Attender: LISA HAN MD [place] [facility] 08:15:00 AM EST [facility] ([facility] Outpatient Attender: LISA HAN MD [facility] 04/2020 10:30:00 AM EST [facility] ([facility] Outpatient Attender: WILLIAM morales 06/07/2020 01:45:00 PM EDT [facility] ([facility] Medications Medication Brand Name Start Date Product Form Dose Route Admi nistrative Instructions Pharmacy Instructions Status Indications Reaction Description Data Source(s) 10 mg 08/15/2020 12:00:00 AM EST tablet 20 TAKE TWO TABLETS BY MOUTH EVERY DAY TAKE TWO TABLETS BY MOUTH EVERY DAY SOLD: 08/15/2020 [facility] 10 mg 08/01/2020 12:00:00 AM EST tablet 20 TAKE FOUR TABLETS BY MOUTH EVERY DAY FOR 2 DAYS , THEN THREE EVERY DAY FOR 2 DAYS , THEN TWO EVERY DAY FOR 2 DAYS , THEN ONE EVERY DAY TAKE FOUR TABLETS BY MOUTH EVERY DAY FOR 2 DAYS , THEN THREE EVERY DAY FOR 2 DAYS , THEN TWO EVERY DAY FOR 2 DAYS , THEN ONE EVERY DAY SOLD: 08/01/2020 [facility] Prednisone 10 MG Oral Tablet Prednisone 08/01/2020 12:00:00 AM EST ORAL active [facility] ([facility] 500 mg 07/18/2020 12:00:00 AM EST tablet 60 TAKE ONE TABLET BY MOUTH TWICE A DAY TAKE ONE TABLET BY MOUTH TWICE A DAY SOLD: 07/18/2020 [facility] Cyclobenzaprine hydrochloride 10 MG Oral Tablet CYCLOBENZAPR INE HCL 07/18/2020 12:00:00 AM EST tablet 30 TAKE ONE TABLET BY MOUTH AT BEDTIME NEEDED TAKE ONE TABLET BY MOUTH AT BEDTIME NEEDED SOLD: 07/18/2020 [facility] Cyclobenzaprine hydrochloride 10 MG Oral Tablet Cyclobenzapr ine HCL 07/18/2020 12:00:00 AM EST ORAL active M [facility] ([facility] Naproxen 500 MG Oral Tablet [Naprosyn] Naprosyn 07/18/2020 12:00:00 AM EST ORAL completed [facility] ([facility] Insurance Providers Payer name Policy type / Coverage type Policy ID Covered constitution party ID Covered constitution party's relationship to sanchez Policy Sanchez Plan Information [employer] [id number] SP [id number] SELF PAY ONLY [id number] SP [id number] [employer] Maintenance Organization (HMO) [id number] Self [id number] [employer] [id number] [employer] Risk [employer] [place] [employer] Compensation Jeannine f [employer] Commercial Self [employer] Commercial Self [employer] [place] Workers Compensation Self [employer] W/C [id number] SP [id number] [employer] RISK MANAGEMENT P [id number] S [id number] [employer] PPO S [id number] S [id number] OTHER W.C.EMPLOYER P [id number] S [id number] [facility] [id number] SP [id number] [employer] [id number] SP [id number] [employer] PPO P [id number] S [id number] Results ID Date Data Source [id number] 08/26/2020 12:00:00 AM EST [facility] Name Value Range Interpretation Code Description Data Sherry rce(s) Supporting Document(s) SARS-CoV-2 (COVID-19) RNA [Presence] in Respiratory specimen by MARCK with probe detection Positive for 2019-nCoV [facility] This lab was ordered by [facility] and reported by [facility]. ID Date Data Source [id number] 08/15/2020 10:27:00 AM EST [facility] ([facility] Name Value Range Interpretation Code Description Data Sherry rce(s) Supporting Document(s) Chol 208 mg/dL 0-200 Above high normal [facility] ([facility] NORMAL RANGES Age WBC RBC HGB HCT [...] HCT IS 5% LESS SOURCE FOR DATA: [employer] 1800 OPERATION MANUAL( AUTOMATED BLOOD COUNTS AND [...] DESIRABLE: <130 MG/DL <110 MG/DL BORDERLINE-HIGH RISK: 130- 159 MG/DL 110-129 MG/DL HIGH RISK: >160 MG/DL >130 MG/DL *CHILDREN AND ADOLESCENTS REPRESENTS INDIVIDUALA AGED 2-19 YEARS EXCLUSIVE. Cholesterol in HDL [Mass/volume] in Serum or Plasma 46 mg/dL 35-55 [facility] ([facility] NORMAL RANGES Age WBC RBC HGB HCT [...] HCT IS 5% LESS SOURCE FOR DATA: [employer] 1800 OPERATION MANUAL( AUTOMATED BLOOD COUNTS AND [...] DESIRABLE: <130 MG/DL <110 MG/DL BORDERLINE-HIGH RISK: 130- 159 MG/DL 110-129 MG/DL HIGH RISK: >160 MG/DL >130 MG/DL *CHILDREN AND ADOLESCENTS REPRESENTS INDIVIDUALA AGED 2-19 YEARS EXCLUSIVE. LDL_C 128 Calc 75-129 [facility] NORMAL RANGES Age WBC RBC HGB HCT [...] HCT IS 5% LESS SOURCE FOR DATA: [employer] 1800 OPERATION MANUAL( AUTOMATED BLOOD COUNTS AND [...] DESIRABLE: <130 MG/DL <110 MG/DL BORDERLINE-HIGH RISK: 130- 159 MG/DL 110-129 MG/DL HIGH RISK: >160 MG/DL >130 MG/DL *CHILDREN AND ADOLESCENTS REPRESENTS INDIVIDUALA AGED 2-19 YEARS EXCLUSIVE. Trig 166 mg/dL 35-200 [facility] ([facility] NORMAL RANGES Age WBC RBC HGB HCT [...] HCT IS 5% LESS SOURCE FOR DATA: [employer] 1800 OPERATION MANUAL( AUTOMATED BLOOD COUNTS AND [...] DESIRABLE: <130 MG/DL <110 MG/DL BORDERLINE-HIGH RISK: 130- 159 MG/DL 110-129 MG/DL HIGH RISK: >160 MG/DL >130 MG/DL *CHILDREN AND ADOLESCENTS REPRESENTS INDIVIDUALA AGED 2-19 YEARS EXCLUSIVE. Cho/HDL Ratio 4.5 CALC [facility] ([facility] NORMAL RANGES Age WBC RBC HGB HCT [...] HCT IS 5% LESS SOURCE FOR DATA: [employer] 1800 OPERATION MANUAL( AUTOMATED BLOOD COUNTS AND [...] DESIRABLE: <130 MG/DL <110 MG/DL BORDERLINE-HIGH RISK: 130- 159 MG/DL 110-129 MG/DL HIGH RISK: >160 MG/DL >130 MG/DL *CHILDREN AND ADOLESCENTS REPRESENTS INDIVIDUALA AGED 2-19 YEARS EXCLUSIVE. ID Date Data Source [id number] 08/15/2020 10:27:00 AM EST [facility] ([facility] Name Value Range Interpretation Code Description Data Sherry rce(s) Supporting Document(s) BUN 12 mg/dL 8-23 [facility] ([facility] NORMAL RANGES Age WBC RBC HGB HCT [...] HCT IS 5% LESS SOURCE FOR DATA: [employer] 1800 OPERATION MANUAL( AUTOMATED BLOOD COUNTS AND [...] DESIRABLE: <130 MG/DL <110 MG/DL BORDERLINE-HIGH RISK: 130- 159 MG/DL 110-129 MG/DL HIGH RISK: >160 MG/DL >130 MG/DL *CHILDREN AND ADOLESCENTS REPRESENTS INDIVIDUALA AGED 2-19 YEARS EXCLUSIVE. Glu 110 mg/dL 70-110 [facility] ([facility] NORMAL RANGES Age WBC RBC HGB HCT [...] HCT IS 5% LESS SOURCE FOR DATA: [employer] 1800 OPERATION MANUAL( AUTOMATED BLOOD COUNTS AND [...] DESIRABLE: <130 MG/DL <110 MG/DL BORDERLINE-HIGH RISK: 130- 159 MG/DL 110-129 MG/DL HIGH RISK: >160 MG/DL >130 MG/DL *CHILDREN AND ADOLESCENTS REPRESENTS INDIVIDUALA AGED 2-19 YEARS EXCLUSIVE. BUN/Creatinine Ratio 13.3 CALC [facility] ([facility] NORMAL RANGES Age WBC RBC HGB HCT [...] HCT IS 5% LESS SOURCE FOR DATA: DILMA DYN 1800 OPERATION MANUAL( AUTOMATED BLOOD COUNTS AND [...] DESIRABLE: <130 MG/DL <110 MG/DL BORDERLINE-HIGH RISK: 130- 159 MG/DL 110-129 MG/DL HIGH RISK: >160 MG/DL >130 MG/DL *CHILDREN AND ADOLESCENTS REPRESENTS INDIVIDUALA AGED 2-19 YEARS EXCLUSIVE. Creat 0.9 mg/dL 0.7-1.2 [facility] ([facility] NORMAL RANGES Age WBC RBC HGB HCT [...] HCT IS 5% LESS SOURCE FOR DATA: [employer] 1800 OPERATION MANUAL( AUTOMATED BLOOD COUNTS AND [...] DESIRABLE: <130 MG/DL <110 MG/DL BORDERLINE-HIGH RISK: 130- 159 MG/DL 110-129 MG/DL HIGH RISK: >160 MG/DL >130 MG/DL *CHILDREN AND ADOLESCENTS REPRESENTS INDIVIDUALA AGED 2-19 YEARS EXCLUSIVE. Na 138 mmol/L 136-145 [facility] ([facility] NORMAL RANGES Age WBC RBC HGB HCT [...] HCT IS 5% LESS SOURCE FOR DATA: [employer] 1800 OPERATION MANUAL( AUTOMATED BLOOD COUNTS AND [...] DESIRABLE: <130 MG/DL <110 MG/DL BORDERLINE-HIGH RISK: 130- 159 MG/DL 110-129 MG/DL HIGH RISK: >160 MG/DL >130 MG/DL *CHILDREN AND ADOLESCENTS REPRESENTS INDIVIDUALA AGED 2-19 YEARS EXCLUSIVE. K 4.1 mmol/L 3.5-5.1 [facility] NORMAL RANGES Age WBC RBC HGB HCT [...] HCT IS 5% LESS SOURCE FOR DATA: [employer] D[employer] 1800 OPERATION MANUAL( AUTOMATED BLOOD COUNTS AND [...] DESIRABLE: <130 MG/DL <110 MG/DL BORDERLINE-HIGH RISK: 130- 159 MG/DL 110-129 MG/DL HIGH RISK: >160 MG/DL >130 MG/DL *CHILDREN AND ADOLESCENTS REPRESENTS INDIVIDUALA AGED 2-19 YEARS EXCLUSIVE. CL 104.8 mmol/L 98.0-107.0 [facility] ([facility] NORMAL RANGES Age WBC RBC HGB HCT [...] HCT IS 5% LESS SOURCE FOR DATA: [employer] 1800 OPERATION MANUAL( AUTOMATED BLOOD COUNTS AND [...] DESIRABLE: <130 MG/DL <110 MG/DL BORDERLINE-HIGH RISK: 130- 159 MG/DL 110-129 MG/DL HIGH RISK: >160 MG/DL >130 MG/DL *CHILDREN AND ADOLESCENTS REPRESENTS INDIVIDUALA AGED 2-19 YEARS EXCLUSIVE. CA 9.0 mg/dL 8.6-10.2 [facility] ([facility] NORMAL RANGES Age WBC RBC HGB HCT [...] HCT IS 5% LESS SOURCE FOR DATA: [employer] 1800 OPERATION MANUAL( AUTOMATED BLOOD COUNTS AND [...] DESIRABLE: <130 MG/DL <110 MG/DL BORDERLINE-HIGH RISK: 130- 159 MG/DL 110-129 MG/DL HIGH RISK: >160 MG/DL >130 MG/DL *CHILDREN AND ADOLESCENTS REPRESENTS INDIVIDUALA AGED 2-19 YEARS EXCLUSIVE. TP 6.6 g/dL 6.6-8.7 [facility] ([facility] NORMAL RANGES Age WBC RBC HGB HCT [...] HCT IS 5% LESS SOURCE FOR DATA: [employer] DYN 1800 OPERATION MANUAL( AUTOMATED BLOOD COUNTS AND [...] DESIRABLE: <130 MG/DL <110 MG/DL BORDERLINE-HIGH RISK: 130- 159 MG/DL 110-129 MG/DL HIGH RISK: >160 MG/DL >130 MG/DL *CHILDREN AND ADOLESCENTS REPRESENTS INDIVIDUALA AGED 2-19 YEARS EXCLUSIVE. Co2 21.0 mmol/L 22.0-29.0 Below low normal [facility] ([facility] NORMAL RANGES Age WBC RBC HGB HCT [...] HCT IS 5% LESS SOURCE FOR DATA: [employer] 1800 OPERATION MANUAL( AUTOMATED BLOOD COUNTS AND [...] DESIRABLE: <130 MG/DL <110 MG/DL BORDERLINE-HIGH RISK: 130- 159 MG/DL 110-129 MG/DL HIGH RISK: >160 MG/DL >130 MG/DL *CHILDREN AND ADOLESCENTS REPRESENTS INDIVIDUALA AGED 2-19 YEARS EXCLUSIVE. Globulin 2.3 CALC [facility] ([facility] NORMAL RANGES Age WBC RBC HGB HCT [...] HCT IS 5% LESS SOURCE FOR DATA: [employer] 1800 OPERATION MANUAL( AUTOMATED BLOOD COUNTS AND [...] DESIRABLE: <130 MG/DL <110 MG/DL BORDERLINE-HIGH RISK: 130- 159 MG/DL 110-129 MG/DL HIGH RISK: >160 MG/DL >130 MG/DL *CHILDREN AND ADOLESCENTS REPRESENTS INDIVIDUALA AGED 2-19 YEARS EXCLUSIVE. A/G Ratio 1.9 CALC [facility] ([facility] NORMAL RANGES Age WBC RBC HGB HCT [...] HCT IS 5% LESS SOURCE FOR DATA: [employer] 1800 OPERATION MANUAL( AUTOMATED BLOOD COUNTS AND [...] DESIRABLE: <130 MG/DL <110 MG/DL BORDERLINE-HIGH RISK: 130- 159 MG/DL 110-129 MG/DL HIGH RISK: >160 MG/DL >130 MG/DL *CHILDREN AND ADOLESCENTS REPRESENTS INDIVIDUALA AGED 2-19 YEARS EXCLUSIVE. Alb 4.3 g/dL 3.5-5.2 [facility] ([facility] NORMAL RANGES Age WBC RBC HGB HCT [...] HCT IS 5% LESS SOURCE FOR DATA: [employer] 1800 OPERATION MANUAL( AUTOMATED BLOOD COUNTS AND [...] DESIRABLE: <130 MG/DL <110 MG/DL BORDERLINE-HIGH RISK: 130- 159 MG/DL 110-129 MG/DL HIGH RISK: >160 MG/DL >130 MG/DL *CHILDREN AND ADOLESCENTS REPRESENTS INDIVIDUALA AGED 2-19 YEARS EXCLUSIVE. Alp 83.1 U/L 40-129 [facility] ([facility] NORMAL RANGES Age WBC RBC HGB HCT [...] HCT IS 5% LESS SOURCE FOR DATA: [employer] 1800 OPERATION MANUAL( AUTOMATED BLOOD COUNTS AND [...] DESIRABLE: <130 MG/DL <110 MG/DL BORDERLINE-HIGH RISK: 130- 159 MG/DL 110-129 MG/DL HIGH RISK: >160 MG/DL >130 MG/DL *CHILDREN AND ADOLESCENTS REPRESENTS INDIVIDUALA AGED 2-19 YEARS EXCLUSIVE. Alt (SGPT) 43 U/L 0-41 Above high normal [facility] ([facility] NORMAL RANGES Age WBC RBC HGB HCT [...] HCT IS 5% LESS SOURCE FOR DATA: [employer] 1800 OPERATION MANUAL( AUTOMATED BLOOD COUNTS AND [...] DESIRABLE: <130 MG/DL <110 MG/DL BORDERLINE-HIGH RISK: 130- 159 MG/DL 110-129 MG/DL HIGH RISK: >160 MG/DL >130 MG/DL *CHILDREN AND ADOLESCENTS REPRESENTS INDIVIDUALA AGED 2-19 YEARS EXCLUSIVE. Ast (Sgot) 23 U/L 0-40 [facility] ([facility] NORMAL RANGES Age WBC RBC HGB HCT [...] HCT IS 5% LESS SOURCE FOR DATA: [employer] 1800 OPERATION MANUAL( AUTOMATED BLOOD COUNTS AND [...] DESIRABLE: <130 MG/DL <110 MG/DL BORDERLINE-HIGH RISK: 130- 159 MG/DL 110-129 MG/DL HIGH RISK: >160 MG/DL >130 MG/DL *CHILDREN AND ADOLESCENTS REPRESENTS INDIVIDUALA AGED 2-19 YEARS EXCLUSIVE. Tbili 0.54 mg/dL 0.0-1.2 [facility] NORMAL RANGES Age WBC RBC HGB HCT [...] HCT IS 5% LESS SOURCE FOR DATA: [employer] 1800 OPERATION MANUAL( AUTOMATED BLOOD COUNTS AND [...] DESIRABLE: <130 MG/DL <110 MG/DL BORDERLINE-HIGH RISK: 130- 159 MG/DL 110-129 MG/DL HIGH RISK: >160 MG/DL >130 MG/DL *CHILDREN AND ADOLESCENTS REPRESENTS INDIVIDUALA AGED 2-19 YEARS EXCLUSIVE. Anion Gap 17 mmol/L [facility] ([facility] NORMAL RANGES Age WBC RBC HGB HCT [...] HCT IS 5% LESS SOURCE FOR DATA: [employer] 1800 OPERATION MANUAL( AUTOMATED BLOOD COUNTS AND [...] DESIRABLE: <130 MG/DL <110 MG/DL BORDERLINE-HIGH RISK: 130- 159 MG/DL 110-129 MG/DL HIGH RISK: >160 MG/DL >130 MG/DL *CHILDREN AND ADOLESCENTS REPRESENTS INDIVIDUALA AGED 2-19 YEARS EXCLUSIVE. Osmolality-Calculated 277.0 CALC [facility] ([facility] NORMAL RANGES Age WBC RBC HGB HCT [...] HCT IS 5% LESS SOURCE FOR DATA: [employer] 1800 OPERATION MANUAL( AUTOMATED BLOOD COUNTS AND [...] DESIRABLE: <130 MG/DL <110 MG/DL BORDERLINE-HIGH RISK: 130- 159 MG/DL 110-129 MG/DL HIGH RISK: >160 MG/DL >130 MG/DL *CHILDREN AND ADOLESCENTS REPRESENTS INDIVIDUALA AGED 2-19 YEARS EXCLUSIVE. eGFR 112 # [facility] ( [facility] NORMAL RANGES Age WBC RBC HGB HCT [...] HCT IS 5% LESS SOURCE FOR DATA: [employer] 1800 OPERATION MANUAL( AUTOMATED BLOOD COUNTS AND [...] DESIRABLE: <130 MG/DL <110 MG/DL BORDERLINE-HIGH RISK: 130- 159 MG/DL 110-129 MG/DL HIGH RISK: >160 MG/DL >130 MG/DL *CHILDREN AND ADOLESCENTS REPRESENTS INDIVIDUALA AGED 2-19 YEARS EXCLUSIVE. eGFR Non-Afr. Ugandan 96 # [facility] ([facility] NORMAL RANGES Age WBC RBC HGB HCT MCV PLT Adult M 4.1-10.9 4.20-6.30 12.0-18.0 37.0-51.0 140-440 Adult F 4.1-10.9 4.04-5.48 12.0-18.0 37.0-51.0 140-440 0 -1 Yr 5.0-20.0 3.9-5.9 15-18 [...] HCT IS 5% LESS SOURCE FOR DATA: [employer] 1800 OPERATION MANUAL( AUTOMATED BLOOD COUNTS AND [...] DESIRABLE: <130 MG/DL <110 MG/DL BORDERLINE-HIGH RISK: 130- 159 MG/DL 110-129 MG/DL HIGH RISK: >160 MG/DL >130 MG/DL *CHILDREN AND ADOLESCENTS REPRESENTS INDIVIDUALA AGED 2-19 YEARS EXCLUSIVE. ID Date Data Source [id number] 08/15/2020 10:27:00 AM EST MED[facility] ([facility] Name Value Range Interpretation Code Description Data Sherry rce(s) Supporting Document(s) WBC 6.2 10E3/uL 4.1-10.9 [facility] ([facility] NORMAL RANGES Age WBC RBC HGB HCT [...] HCT IS 5% LESS SOURCE FOR DATA: [employer] 1800 OPERATION MANUAL( AUTOMATED BLOOD COUNTS AND [...] DESIRABLE: <130 MG/DL <110 MG/DL BORDERLINE-HIGH RISK: 130- 159 MG/DL 110-129 MG/DL HIGH RISK: >160 MG/DL >130 MG/DL *CHILDREN AND ADOLESCENTS REPRESENTS INDIVIDUALA AGED 2-19 YEARS EXCLUSIVE. RBC 4.95 10E6/uL 4.20-6.30 [facility] ([facility] NORMAL RANGES Age WBC RBC HGB HCT [...] HCT IS 5% LESS SOURCE FOR DATA: [employer] 1800 OPERATION MANUAL( AUTOMATED BLOOD COUNTS AND [...] DESIRABLE: <130 MG/DL <110 MG/DL BORDERLINE-HIGH RISK: 130- 159 MG/DL 110-129 MG/DL HIGH RISK: >160 MG/DL >130 MG/DL *CHILDREN AND ADOLESCENTS REPRESENTS INDIVIDUALA AGED 2-19 YEARS EXCLUSIVE. HGB 15.6 g/dL 12.0-18.0 [facility] NORMAL RANGES Age WBC RBC HGB HCT [...] HCT IS 5% LESS SOURCE FOR DATA: [employer] 1800 OPERATION MANUAL( AUTOMATED BLOOD COUNTS AND [...] DESIRABLE: <130 MG/DL <110 MG/DL BORDERLINE-HIGH RISK: 130- 159 MG/DL 110-129 MG/DL HIGH RISK: >160 MG/DL >130 MG/DL *CHILDREN AND ADOLESCENTS REPRESENTS INDIVIDUALA AGED 2-19 YEARS EXCLUSIVE. HCT 45.3 % 37.0-51.0 [facility] ([facility] NORMAL RANGES Age WBC RBC HGB HCT [...] HCT IS 5% LESS SOURCE FOR DATA: [employer] 1800 OPERATION MANUAL( AUTOMATED BLOOD COUNTS AND [...] DESIRABLE: <130 MG/DL <110 MG/DL BORDERLINE-HIGH RISK: 130- 159 MG/DL 110-129 MG/DL HIGH RISK: >160 MG/DL >130 MG/DL *CHILDREN AND ADOLESCENTS REPRESENTS INDIVIDUALA AGED 2-19 YEARS EXCLUSIVE. MCV 91.5 fL 80.0-97.0 [facility]I ([facility] NORMAL RANGES Age WBC RBC HGB HCT [...] HCT IS 5% LESS SOURCE FOR DATA: [employer] 1800 OPERATION MANUAL( AUTOMATED BLOOD COUNTS AND [...] DESIRABLE: <130 MG/DL <110 MG/DL BORDERLINE-HIGH RISK: 130- 159 MG/DL 110-129 MG/DL HIGH RISK: >160 MG/DL >130 MG/DL *CHILDREN AND ADOLESCENTS REPRESENTS INDIVIDUALA AGED 2-19 YEARS EXCLUSIVE. MCH 31.5 pg 26.0-32.0 [facility] ([facility] NORMAL RANGES Age WBC RBC HGB HCT [...] HCT IS 5% LESS SOURCE FOR DATA: [employer] 1800 OPERATION MANUAL( AUTOMATED BLOOD COUNTS AND [...] DESIRABLE: <130 MG/DL <110 MG/DL BORDERLINE-HIGH RISK: 130- 159 MG/DL 110-129 MG/DL HIGH RISK: >160 MG/DL >130 MG/DL *CHILDREN AND ADOLESCENTS REPRESENTS INDIVIDUALA AGED 2-19 YEARS EXCLUSIVE. MCHC 34.4 g/dL 31.0-36.0 [facility] ([facility] NORMAL RANGES Age WBC RBC HGB HCT [...] HCT IS 5% LESS SOURCE FOR DATA: [employer] 1800 OPERATION MANUAL( AUTOMATED BLOOD COUNTS AND [...] DESIRABLE: <130 MG/DL <110 MG/DL BORDERLINE-HIGH RISK: 130- 159 MG/DL 110-129 MG/DL HIGH RISK: >160 MG/DL >130 MG/DL *CHILDREN AND ADOLESCENTS REPRESENTS INDIVIDUALA AGED 2-19 YEARS EXCLUSIVE. Lym% 25.2 % 10.0-58.5 [facility] ([facility] NORMAL RANGES Age WBC RBC HGB HCT [...] HCT IS 5% LESS SOURCE FOR DATA: [employer] 1800 OPERATION MANUAL( AUTOMATED BLOOD COUNTS AND [...] DESIRABLE: <130 MG/DL <110 MG/DL BORDERLINE-HIGH RISK: 130- 159 MG/DL 110-129 MG/DL HIGH RISK: >160 MG/DL >130 MG/DL *CHILDREN AND ADOLESCENTS REPRESENTS INDIVIDUALA AGED 2-19 YEARS EXCLUSIVE. PLT 228 10E3/uL 140-440 [facility] ([facility] NORMAL RANGES Age WBC RBC HGB HCT [...] HCT IS 5% LESS SOURCE FOR DATA: [employer] 1800 OPERATION MANUAL( AUTOMATED BLOOD COUNTS AND [...] DESIRABLE: <130 MG/DL <110 MG/DL BORDERLINE-HIGH RISK: 130- 159 MG/DL 110-129 MG/DL HIGH RISK: >160 MG/DL >130 MG/DL *CHILDREN AND ADOLESCENTS REPRESENTS INDIVIDUALA AGED 2-19 YEARS EXCLUSIVE. RDW-CV 13.2 % 11.5-14.5 NONI ([facility] NORMAL RANGES Age WBC RBC HGB HCT [...] HCT IS 5% LESS SOURCE FOR DATA: [employer] 1800 OPERATION MANUAL( AUTOMATED BLOOD COUNTS AND [...] DESIRABLE: <130 MG/DL <110 MG/DL BORDERLINE-HIGH RISK: 130- 159 MG/DL 110-129 MG/DL HIGH RISK: >160 MG/DL >130 MG/DL *CHILDREN AND ADOLESCENTS REPRESENTS INDIVIDUALA AGED 2-19 YEARS EXCLUSIVE. MXD% 8.9 % 0.1-24.0 [facility] ([facility] NORMAL RANGES Age WBC RBC HGB HCT [...] HCT IS 5% LESS SOURCE FOR DATA: [employer] 1800 OPERATION MANUAL( AUTOMATED BLOOD COUNTS AND [...] DESIRABLE: <130 MG/DL <110 MG/DL BORDERLINE-HIGH RISK: 130- 159 MG/DL 110-129 MG/DL HIGH RISK: >160 MG/DL >130 MG/DL *CHILDREN AND ADOLESCENTS REPRESENTS INDIVIDUALA AGED 2-19 YEARS EXCLUSIVE. Lym# 1.6 10E3/uL 0.6-4.1 MED[facility] ([facility] NORMAL RANGES Age WBC RBC HGB HCT [...] HCT IS 5% LESS SOURCE FOR DATA: [employer] 1800 OPERATION MANUAL( AUTOMATED BLOOD COUNTS AND [...] DESIRABLE: <130 MG/DL <110 MG/DL BORDERLINE-HIGH RISK: 130- 159 MG/DL 110-129 MG/DL HIGH RISK: >160 MG/DL >130 MG/DL *CHILDREN AND ADOLESCENTS REPRESENTS INDIVIDUALA AGED 2-19 YEARS EXCLUSIVE. Neut% 65.9 % 37.0-92.0 [facility] ([facility] NORMAL RANGES Age WBC RBC HGB HCT [...] HCT IS 5% LESS SOURCE FOR DATA: [employer] 1800 OPERATION MANUAL( AUTOMATED BLOOD COUNTS AND [...] DESIRABLE: <130 MG/DL <110 MG/DL BORDERLINE-HIGH RISK: 130- 159 MG/DL 110-129 MG/DL HIGH RISK: >160 MG/DL >130 MG/DL *CHILDREN AND ADOLESCENTS REPRESENTS INDIVIDUALA AGED 2-19 YEARS EXCLUSIVE. MXD# 0.6 10E3/uL 0.0-1.8 [facility] ([facility] NORMAL RANGES Age WBC RBC HGB HCT [...] HCT IS 5% LESS SOURCE FOR DATA: [employer] 1800 OPERATION MANUAL( AUTOMATED BLOOD COUNTS AND [...] DESIRABLE: <130 MG/DL <110 MG/DL BORDERLINE-HIGH RISK: 130- 159 MG/DL 110-129 MG/DL HIGH RISK: >160 MG/DL >130 MG/DL *CHILDREN AND ADOLESCENTS REPRESENTS INDIVIDUALA AGED 2-19 YEARS EXCLUSIVE. Neut# 4.0 % 2.0-7.8 [facility] ([facility] NORMAL RANGES Age WBC RBC HGB HCT [...] HCT IS 5% LESS SOURCE FOR DATA: [employer] 1800 OPERATION MANUAL( AUTOMATED BLOOD COUNTS AND [...] DESIRABLE: <130 MG/DL <110 MG/DL BORDERLINE-HIGH RISK: 130- 159 MG/DL 110-129 MG/DL HIGH RISK: >160 MG/DL >130 MG/DL *CHILDREN AND ADOLESCENTS REPRESENTS INDIVIDUALA AGED 2-19 YEARS EXCLUSIVE. MPV 10.5 fL 9.0-13.0 [facility] ([facility] NORMAL RANGES Age WBC RBC HGB HCT [...] HCT IS 5% LESS SOURCE FOR DATA: [employer] 1800 OPERATION MANUAL( AUTOMATED BLOOD COUNTS AND [...] DESIRABLE: <130 MG/DL <110 MG/DL BORDERLINE-HIGH RISK: 130- 159 MG/DL 110-129 MG/DL HIGH RISK: >160 MG/DL >130 MG/DL *CHILDREN AND ADOLESCENTS REPRESENTS INDIVIDUALA AGED 2-19 YEARS EXCLUSIVE. ID Date Data Source [id number] 08/15/2020 10:27:00 AM EST [facility]OHIT ([facility] Name Value Range Interpretation Code Description Data Sherry rce(s) Supporting Document(s) Prostate specific Ag [Mass/volume] in Serum or Plasma 0.60 ng/mL 0.0- 4.0 [facility] ([facility] Procedure Social History Code Duration Value Status Description Data Source(s ) Smoking 06/07/2020 12:00:00 AM EDT Patient has never smoked co mpleted Patient has never smoked [facility] ([facility], [facility]) Vital Signs ID Date Data Source UNK Name Value Range Interpretation Code Description Data Source(s) Oxygen saturation in Arterial blood by Pulse oximetry 97 % 97 % [facility] ([facility] Body mass index (BMI) [Ratio] 46.8 kg/m2 46.8 k g/m2 [facility] ([facility] Galliano body weight 154 [lb_av] 154 [lb_av] MEDEN T ([facility] Body weight 308.00 [lb_av] 308.00 [lb_av] MEDEN T ([facility] Body height 68 [in_i] 68 [in_i] [facility] ([facility] 5'8" Respiratory rate 16 /min 16 /min [facility] ( [facility] Heart rate 103 /min 103 /min [facility] ([facility] Body temperature 97.8 [degF] 97.8 [degF] [facility] ([facility] Diastolic blood pressure 90 mm[Hg] 90 mm[Hg] [facility] ([facility] Systolic blood pressure 134 mm[Hg] 134 mm[Hg] M EDENT ([facility] Oxygen saturation in Arterial blood by Pulse oximetry 97 % 97 % [facility] ([facility] Body mass index (BMI) [Ratio] 46.5 kg/m2 46.5 k g/m2 [facility] ([facility] Galliano body weight 154 [lb_av] 154 [lb_av] MEDEN T ([facility] Body weight 306.00 [lb_av] 306.00 [lb_av] MEDEN T ([facility] Body height 68 [in_i] 68 [in_i] [facility] ([facility] 5'8" Respiratory rate 18 /min 18 /min [facility] ( [facility] Heart rate 88 /min 88 /min [facility] ([facility] Body temperature 98.6 [degF] 98.6 [degF] [facility] ([facility] Diastolic blood pressure 88 mm[Hg] 88 mm[Hg] [facility] ([facility] Systolic blood pressure 128 mm[Hg] 128 mm[Hg] M EDENT ([facility] Oxygen saturation in Arterial blood by Pulse oximetry 98 % 98 % [facility] ([facility] Body mass index (BMI) [Ratio] 47.1 kg/m2 47.1 k g/m2 [facility] ([facility] Galliano body weight 154 [lb_av] 154 [lb_av] MEDEN T ([facility] Body weight 310.00 [lb_av] 310.00 [lb_av] MEDEN T ([facility] Body height 68 [in_i] 68 [in_i] [facility] ([facility] 5'8" Respiratory rate 18 /min 18 /min [facility] ( [facility] Heart rate 90 /min 90 /min [facility] ([facility] Body temperature 98.3 [degF] 98.3 [degF] [facility] ([facility] Diastolic blood pressure 92 mm[Hg] 92 mm[Hg] [facility] ([facility] Systolic blood pressure 124 mm[Hg] 124 mm[Hg] M EDENT ([facility] Body mass index (BMI) [Ratio] 41.0 kg/m2 41.0 k g/m2 [facility] ([facility], [facility]) Body height 68 [in_i] 68 [in_i] [facility] ([facility] 5'8" Body weight 270.00 [lb_av] 270.00 [lb_av] MEDEN T ([facility], [facility]) Body temperature 97.8 [degF] 97.8 [degF] [facility] ([facility], [facility]) Oxygen saturation in Arterial blood by Pulse oximetry 97 % 97 % [facility] ([facility], [facility]) Respiratory rate 16 /min 16 /min MED[facility] ( [facility], [facility]) Heart rate 84 /min 84 /min [facility] ([facility], [facility]) Diastolic blood pressure 102 mm[Hg] 102 mm[Hg] MED[facility] ([facility], [facility]) Systolic blood pressure 149 mm[Hg] 149 mm[Hg] [facility], [facility]) Oxygen saturation in Arterial blood by Pulse oximetry 98 % 98 % NONI ([facility] Body mass index (BMI) [Ratio] 42.7 kg/m2 42.7 k g/m2 [facility] ([facility] Galliano body weight 154 [lb_av] 154 [lb_av] MEDEN T ([facility] Body weight 281.00 [lb_av] 281.00 [lb_av] MAREN T ([facility] Body height 68 [in_i] 68 [in_i] MEDROHIT ([facility] 5'8" Respiratory rate 18 /min 18 /min NONI ( [facility] Heart rate 88 /min 88 /min [facility]ROHIT ([facility] Body temperature 97.8 [degF] 97.8 [degF] NONI ([facility] Diastolic blood pressure 80 mm[Hg] 80 mm[Hg] NONI ([facility] Systolic blood pressure 136 mm[Hg] 136 mm[Hg] M SHEREE ([facility]
--- OUTSIDE RECORDS SUMMARY | 2020-08-30 09:23 | CCD | Continuity of Care Document ---
Author Author Wilmer SIM Organization Unknown Address [address] [place] [address] [place] [address] Phone [phone] Care Team Providers Care Stock Order Lister Name Role Phone [employer]M [phone] Problems Active Problems Provider Date Generalized abdominal [...]
--- OUTSIDE RECORDS SUMMARY | 2020-08-30 10:15 | CCD ---
Author Author [facility] Organization [facility] Address Unknown Phone Unavailable Care Team Providers Care Shank Carrier Name Role Phone Mariaa HAN MD Unavailable [...] Unavailable Mariaa HAN MD Unavailable Unavailable Mariaa HNA MD Unavailable Unavailable Mariaa HAN MD Unavailable [...] D William PA Unavailable Unavailable Allyson, D Iwlliam PA Unavailable Unavailable Allyson, D William PA [...] Unavailable Allyson, D William PA Unavailable Unavailable Allyosn, D William PA Unavailable Unavailable Allyson, D [...] D William PA Unavailable Unavailable Allyson, D Willima PA Unavailable Unavailable Allyson, D William PA [...] WILLIAM PA Unavailable Unavailable LETTIERE, A WILLIAM TURNER Unavailable Unavailable Re-disclosure Warning The [...] is protected by Article 27-F of the [facility] Public Health law. If you continue you may have access to information: Regarding HIV / AIDS; Provided by facilities licensed or operated by the [facility] Office of Mental Health; or Provided by the [facility] Office for People With Developmental Disabilities. If such information is present, then the following [facility] mandated warning applies: This information has been [...] law may result in a fine or prison sentence or both. A general authorization for [...] Data Source(s ) Outpatient Attender: William TURNER [place] [facility] 01/2021 08:30:00 AM EST [facility] ([facility] Outpatient Attender: LISA HAN MD [place] [facility] 08:15:00 AM EST [facility] ([facility] Outpatient Attender: LISA HAN MD [place] [facility] 04/2020 10:30:00 AM EST [facility] ([facility] Outpatient Attender: WILLIAM Tolentino Delfino jernigany 06/07/2020 01:45:00 PM EDT [facility] ([facility] Medications Medication Brand [...] 08/01/2020 12:00:00 AM EST ORAL active [facility] 500 mg 07/18/2020 12:00:00 AM EST [...] 12:00:00 AM EST ORAL active M EDENT ([facility] Naproxen 500 MG Oral Tablet [Naprosyn] Naprosyn 07/18/2020 12:00:00 AM EST ORAL completed [facility] ([facility] Insurance Providers Payer name Policy type / Coverage type Policy ID Covered green party ID Covered green party's relationship to sanchez Policy Sanchez Plan Information [facility] [id number] SP [id number] SELF PAY ONLY [id number] SP [id number] [employer] Maintenance Organization (HMO) [id number] Self [id number] [employer] [id number] [employer] [place] [employer] Compensation Jeannine f [employer] Commercial Self [employer] Commercial Self [employer] [place] Workers Compensation Self [employer] W/C [id number] SP [id number] [employer] RISK MANAGEMENT P [id number] S [id number] [employer] PPO S [id number] S [id number] OTHER W.C.EMPLOYER P [id number] S [id number] [facility] [id number] SP [id number] [employer] [id number] SP [id number] [employer] PPO P [id number] S [id number] Results ID Date Data Source [id number] 08/26/2020 12:00:00 AM EST [facility] Name Value Range Interpretation Code Description Data Sherry rce(s) Supporting Document(s) SARS-CoV-2 (COVID-19) RNA [Presence] in Respiratory specimen by MARCK with probe detection Positive for 2019-nCoV [facility] This lab was ordered by [facility] and reported by [employer] ID Date Data Source [id number] 08/15/2020 10:27:00 AM EST [facility] ([facility] Name Value Range Interpretation [...] HCT IS 5% LESS SOURCE FOR DATA: [employer] 1800 OPERATION MANUAL( AUTOMATED BLOOD COUNTS AND [...] in Serum or Plasma 46 mg/dL 35-55 [facility] ([facility] NORMAL RANGES Age [...] HCT IS 5% LESS SOURCE FOR DATA: [employer] 1800 OPERATION MANUAL( AUTOMATED BLOOD COUNTS AND [...] 2-19 YEARS EXCLUSIVE. LDL_C 128 Calc 75-129 [facility] ([facility] NORMAL RANGES [...] HCT IS 5% LESS SOURCE FOR DATA: [employer] 1800 OPERATION MANUAL( AUTOMATED BLOOD COUNTS AND [...] HCT IS 5% LESS SOURCE FOR DATA: [employer] 1800 OPERATION MANUAL( AUTOMATED BLOOD COUNTS AND [...] EXCLUSIVE. Cho/HDL Ratio 4.5 CALC NONI ([facility] NORMAL RANGES Age WBC RBC HGB [...] HCT IS 5% LESS SOURCE FOR DATA: [employer] 1800 OPERATION MANUAL( AUTOMATED BLOOD COUNTS AND [...] 2-19 YEARS EXCLUSIVE. ID Date Data Source [id number] 08/15/2020 10:27:00 AM EST [facility] ([facility] Name Value Range Interpretation [...] HCT IS 5% LESS SOURCE FOR DATA: [employer] 1800 OPERATION MANUAL( AUTOMATED BLOOD COUNTS AND [...] HCT IS 5% LESS SOURCE FOR DATA: [employer] 1800 OPERATION MANUAL( AUTOMATED BLOOD COUNTS AND [...] 2-19 YEARS EXCLUSIVE. BUN/Creatinine Ratio 13.3 CALC MED[facility] ([facility] NORMAL RANGES Age [...] HCT IS 5% LESS SOURCE FOR DATA: [employer]YN 1800 OPERATION MANUAL( AUTOMATED BLOOD COUNTS [...] HCT IS 5% LESS SOURCE FOR DATA: [employer] 1800 OPERATION MANUAL( AUTOMATED BLOOD COUNTS AND [...] HCT IS 5% LESS SOURCE FOR DATA: [employer] 1800 OPERATION MANUAL( AUTOMATED BLOOD COUNTS AND [...] 2-19 YEARS EXCLUSIVE. K 4.1 mmol/L 3.5-5.1 [facility] NORMAL RANGES Age WBC RBC [...] HCT IS 5% LESS SOURCE FOR DATA: [employer] DYN 1800 OPERATION MANUAL( AUTOMATED BLOOD COUNTS [...] 2-19 YEARS EXCLUSIVE. CL 104.8 mmol/L 98.0-107.0 [facility] ([facility] NORMAL RANGES Age WBC RBC [...] HCT IS 5% LESS SOURCE FOR DATA: [employer] 1800 OPERATION MANUAL( AUTOMATED BLOOD COUNTS AND [...] 2-19 YEARS EXCLUSIVE. CA 9.0 mg/dL 8.6-10.2 [facility] ([facility] NORMAL RANGES Age WBC RBC [...] HCT IS 5% LESS SOURCE FOR DATA: [employer] 1800 OPERATION MANUAL( AUTOMATED BLOOD COUNTS AND [...] 2-19 YEARS EXCLUSIVE. TP 6.6 g/dL 6.6-8.7 [facility] ([facility] NORMAL RANGES [...] HCT IS 5% LESS SOURCE FOR DATA: [employer] DYN 1800 OPERATION MANUAL( AUTOMATED BLOOD COUNTS [...] HCT IS 5% LESS SOURCE FOR DATA: [employer] 1800 OPERATION MANUAL( AUTOMATED BLOOD COUNTS AND [...] AGED 2-19 YEARS EXCLUSIVE. Globulin 2.3 CALC [facility] ([facility] NORMAL RANGES [...] HCT IS 5% LESS SOURCE FOR DATA: [employer] 1800 OPERATION MANUAL( AUTOMATED BLOOD COUNTS AND [...] HCT IS 5% LESS SOURCE FOR DATA: [employer] 1800 OPERATION MANUAL( AUTOMATED BLOOD COUNTS AND [...] HCT IS 5% LESS SOURCE FOR DATA: [employer] 1800 OPERATION MANUAL( AUTOMATED BLOOD COUNTS AND [...] 2-19 YEARS EXCLUSIVE. Alp 83.1 U/L 40-129 NONI ([facility] NORMAL RANGES Age WBC [...] HCT IS 5% LESS SOURCE FOR DATA: [employer] 1800 OPERATION MANUAL( AUTOMATED BLOOD COUNTS AND [...] HCT IS 5% LESS SOURCE FOR DATA: [employer] 1800 OPERATION MANUAL( AUTOMATED BLOOD COUNTS AND [...] HCT IS 5% LESS SOURCE FOR DATA: [employer] 1800 OPERATION MANUAL( AUTOMATED BLOOD COUNTS AND [...] 2-19 YEARS EXCLUSIVE. Tbili 0.54 mg/dL 0.0-1.2 [facility] ([facility] NORMAL RANGES Age WBC [...] HCT IS 5% LESS SOURCE FOR DATA: [employer] 1800 OPERATION MANUAL( AUTOMATED BLOOD COUNTS AND [...] 2-19 YEARS EXCLUSIVE. Anion Gap 17 mmol/L [facility] ([facility] NORMAL [...] HCT IS 5% LESS SOURCE FOR DATA: [employer] 1800 OPERATION MANUAL( AUTOMATED BLOOD COUNTS AND [...] HCT IS 5% LESS SOURCE FOR DATA: [employer] 1800 OPERATION MANUAL( AUTOMATED BLOOD COUNTS AND [...] YEARS EXCLUSIVE. eGFR 112 # [facility] ( [facility] NORMAL RANGES Age WBC [...] IS 5% LESS SOURCE FOR DATA: [employer] 1800 OPERATION MANUAL( AUTOMATED BLOOD COUNTS AND [...] INDIVIDUALA AGED 2-19 YEARS EXCLUSIVE. eGFR Non-Afr. Somali 96 # [facility] ([facility] [...] HCT IS 5% LESS SOURCE FOR DATA: [employer] 1800 OPERATION MANUAL( AUTOMATED BLOOD COUNTS AND [...] 2-19 YEARS EXCLUSIVE. ID Date Data Source [id number] 08/15/2020 10:27:00 AM EST [facility] ([facility] Name Value Range [...] HCT IS 5% LESS SOURCE FOR DATA: [employer] 1800 OPERATION MANUAL( AUTOMATED BLOOD COUNTS AND [...] AGED 2-19 YEARS EXCLUSIVE. RBC 4.95 10E6/uL 4.-6. [place] ([facility] NORMAL RANGES Age WBC [...] HCT IS 5% LESS SOURCE FOR DATA: [employer] 1800 OPERATION MANUAL( AUTOMATED BLOOD COUNTS AND [...] 2-19 YEARS EXCLUSIVE. HGB 15.6 g/dL 12.0-18.0 [facility] ([facility] NORMAL [...] HCT IS 5% LESS SOURCE FOR DATA: [employer] 1800 OPERATION MANUAL( AUTOMATED BLOOD COUNTS AND [...] 2-19 YEARS EXCLUSIVE. HCT 45.3 % 37.0-[facility] NORMAL RANGES [...] HCT IS 5% LESS SOURCE FOR DATA: [employer] 1800 OPERATION MANUAL( AUTOMATED BLOOD COUNTS AND [...] 2-19 YEARS EXCLUSIVE. MCV 91.5 fL 80.0-97.0 [facility] ([facility] NORMAL [...] HCT IS 5% LESS SOURCE FOR DATA: [employer] 1800 OPERATION MANUAL( AUTOMATED BLOOD COUNTS AND [...] 2-19 YEARS EXCLUSIVE. MCH 31.5 pg 26.0-32.0 [facility] ([facility] NORMAL RANGES [...] HCT IS 5% LESS SOURCE FOR DATA: [employer] 1800 OPERATION MANUAL( AUTOMATED BLOOD COUNTS AND [...] 2-19 YEARS EXCLUSIVE. MCHC 34.4 g/dL 31.0-36.0 NONI ([facility] NORMAL RANGES Age [...] HCT IS 5% LESS SOURCE FOR DATA: [employer] 1800 OPERATION MANUAL( AUTOMATED BLOOD COUNTS AND [...] 2-19 YEARS EXCLUSIVE. Lym% 25.2 % 10.0-58.5 [facility] ([facility] NORMAL [...] HCT IS 5% LESS SOURCE FOR DATA: [employer] 1800 OPERATION MANUAL( AUTOMATED BLOOD COUNTS AND [...] 2-19 YEARS EXCLUSIVE. PLT 228 10E3/uL 140-440 [facility] ([facility] NORMAL RANGES Age WBC RBC [...] HCT IS 5% LESS SOURCE FOR DATA: [employer] 1800 OPERATION MANUAL( AUTOMATED BLOOD COUNTS AND [...] 2-19 YEARS EXCLUSIVE. RDW-CV 13.2 % 11.5-14.5 [facility] ([facility] NORMAL RANGES Age WBC RBC [...] HCT IS 5% LESS SOURCE FOR DATA: [employer] 1800 OPERATION MANUAL( AUTOMATED BLOOD COUNTS AND [...] 2-19 YEARS EXCLUSIVE. MXD% 8.9 % 0.1-24.0 [facility] ([facility] NORMAL RANGES [...] HCT IS 5% LESS SOURCE FOR DATA: [employer] 1800 OPERATION MANUAL( AUTOMATED BLOOD COUNTS AND [...] 2-19 YEARS EXCLUSIVE. Lym# 1.6 10E3/uL 0.6-4.1 NONI ([facility] NORMAL RANGES Age WBC RBC [...] HCT IS 5% LESS SOURCE FOR DATA: [employer] 1800 OPERATION MANUAL( AUTOMATED BLOOD COUNTS AND [...] 2-19 YEARS EXCLUSIVE. Neut% 65.9 % 37.0-92.0 [facility] ([facility] NORMAL [...] HCT IS 5% LESS SOURCE FOR DATA: [employer] 1800 OPERATION MANUAL( AUTOMATED BLOOD COUNTS AND [...] 2-19 YEARS EXCLUSIVE. MXD# 0.6 10E3/uL 0.0-1.8 [facility] ([facility] NORMAL RANGES Age WBC RBC [...] HCT IS 5% LESS SOURCE FOR DATA: [employer] 1800 OPERATION MANUAL( AUTOMATED BLOOD COUNTS AND [...] HCT IS 5% LESS SOURCE FOR DATA: [employer] 1800 OPERATION MANUAL( AUTOMATED BLOOD COUNTS AND [...] 2-19 YEARS EXCLUSIVE. MPV 10.5 fL 9.0-13.0 [facility] ([facility] NORMAL [...] HCT IS 5% LESS SOURCE FOR DATA: [employer]YN 1800 OPERATION MANUAL( AUTOMATED BLOOD COUNTS [...] 2-19 YEARS EXCLUSIVE. ID Date Data Source [id number] 08/15/2020 10:27:00 AM EST [facility] ([facility] Name Value Range Interpretation Code Description Data Sherry rce(s) Supporting Document(s) Prostate specific Ag [Mass/volume] in Serum or Plasma 0.60 ng/mL 0.0- 4.0 [facility] ([facility] Procedure Social History Code Duration Value Status Description Data Source(s ) Smoking 06/07/2020 12:00:00 AM EDT Patient has never smoked co mpleted Patient has never smoked [facility] ([facility]) Vital Signs ID Date Data Source UNK Name Value Range Interpretation Code Description Data Source(s) Oxygen saturation in Arterial blood by Pulse oximetry 97 % 97 % [facility] ([facility] Body mass index (BMI) [Ratio] 46.8 kg/m2 46.8 k g/m2 [facility] ([facility] [place] body weight 154 [lb_av] 154 [lb_av] MEDEN T ([facility] Body weight 308.00 [lb_av] 308.00 [lb_av] MED[facility] T ([facility] Body height 68 [in_i] 68 [in_i] [facility] ([facility] 5'8" Respiratory rate 16 /min 16 /min [facility] ( [facility] Heart rate 103 /min 103 /min [facility] ([facility] Body temperature 97.8 [...] k g/m2 [facility] ([facility] [place] body weight 154 [lb_av] 154 [lb_av] MED[facility] T ([facility] Body weight 306.00 [lb_av] 306.00 [lb_av] MED[facility] T ([facility] Body height 68 [in_i] 68 [in_i] [facility] ([facility] 5'8" Respiratory rate 18 [...] Pulse oximetry 98 % 98 % [facility] ([facility] Body mass index (BMI) [Ratio] 47.1 kg/m2 47.1 k g/m2 [facility] ([facility] [place] body weight 154 [lb_av] 154 [lb_av] MEDEN T ([facility] Body weight 310.00 [lb_av] 310.00 [lb_av] MEDEN T ([facility] Body height 68 [in_i] 68 [in_i] [facility] ([facility] 5'8" Respiratory rate 18 /min 18 /min [facility] ( [facility] Heart rate 90 /min 90 /min [facility] Body temperature 98.3 [degF] 98.3 [degF] [facility] ([facility] Diastolic blood pressure 92 mm[Hg] 92 mm[Hg] [facility] ([facility] Systolic blood pressure 124 mm[Hg] 124 mm[Hg] M EDENT ([facility] Body mass index (BMI) [Ratio] 41.0 kg/m2 41.0 k g/m2 [facility] ([facility]) Body height 68 [in_i] 68 [in_i] [facility] ([facility]) 5'8" Body weight 270.00 [lb_av] 270.00 [lb_av] MEDEN T ([facility]) Body temperature 97.8 [degF] 97.8 [degF] [facility] ([facility]) Oxygen saturation in Arterial blood by Pulse oximetry 97 % 97 % [facility] ([facility]) Respiratory rate 16 /min 16 /min [facility] ( [facility]) Heart rate 84 /min 84 /min [facility] ([facility]) Diastolic blood pressure 102 mm[Hg] 102 mm[Hg] [facility] ([facility]) Systolic blood pressure 149 mm[Hg] 149 mm[Hg] M EDENT ([facility]) Oxygen saturation in Arterial blood by Pulse oximetry 98 % 98 % NONI ([facility] Body mass index (BMI) [Ratio] 42.7 kg/m2 42.7 k g/m2 NONI ([facility] [place] body weight 154 [lb_av] 154 [lb_av] MEDEN T ([facility] Body weight 281.00 [lb_av] 281.00 [lb_av] MEDEN T ([facility] Body height 68 [in_i] 68 [in_i] NONI ([facility] 5'8" Respiratory rate 18 /min 18 /min ONNI ( [facility] Heart rate 88 /min 88 /min NONI ([facility] Body temperature 97.8 [degF] 97.8 [degF] NONI ([facility] Diastolic blood pressure 80 mm[Hg] 80 mm[Hg] NONI ([facility] Systolic blood pressure 136 mm[Hg] 136 mm[Hg] M SHEREE ([facility]
[2020-08-30 10:17] LABS: BASO % 0.7 % (0.0-1.0); EOS # 0.1 10^3/uL (0.0-0.5); EOS % 1.8 % (0.0-3.0); HEMATOCRIT 43.7 % (42.0-52.0); HEMOGLOBIN 14.8 g/dl (13.5-17.5); LYMPH # 1.1 10^3/uL (1.5-5.0); LYMPH % 23.8 % (24.0-44.0); MEAN CORPUSCULAR HEMOGLOBIN 30.6 pg (27.0-33.0); MEAN CORPUSCULAR HGB CONC 33.9 g/dl (32.0-36.5); MEAN CORPUSCULAR VOLUME 90.3 fl (80.0-96.0); MONO # 0.7 10^3/uL (0.0-0.8); MONO % 15.5 % (0.0-5.0); NEUTROPHILS # 2.5 10^3/uL (1.5-8.5); NEUTROPHILS % 56.2 % (36.0-66.0); PLATELET COUNT, AUTOMATED 202 10^3/uL (150-450); RED BLOOD COUNT 4.84 10^6/uL (4.30-6.10); WHITE BLOOD COUNT 4.5 10^3/uL (4.0-10.0)
--- NOTE | 2020-08-30 10:19 | REP ---
INDICATION: Coronavirus workup. COMPARISON: Comparison chest x-ray June 22, 2018. TECHNIQUE: Portable upright AP chest radiograph. FINDINGS: There are subtle areas of peripheral increased markings in the right upper lobe consistent with a mild early infiltrate. Lung howell are otherwise clear. Pleural angles are sharp. Heart is not felt to be enlarged. The aorta is slightly tortuous. No acute bony abnormality is seen.. IMPRESSION: Subtle peripheral infiltrate right upper lobe consistent with pneumonia.. <Electronically signed by Nathaniel Weiss > 08/30/20 1017
[2020-08-30 10:48] LABS: ALBUMIN 3.6 GM/DL (3.2-5.2); ALT/SGPT 45 U/L (12-78); BILIRUBIN,TOTAL 0.4 MG/DL (0.2-1.0); BLOOD UREA NITROGEN 11 MG/DL (7-18); C REACTIVE PROTEIN QUANTITATIV 1.47 MG/DL (0.00-0.30); CALCIUM LEVEL 8.9 MG/DL (8.5-10.1); CARBON DIOXIDE LEVEL 26 MEQ/L (21-32); CHLORIDE LEVEL 104 MEQ/L (98-107); CREATININE FOR GFR 0.93 MG/DL (0.70-1.30); FERRITIN 540 NG/ML (26-388); GLOMERULAR FILTRATION RATE > 60.0 (>56); GLUCOSE, FASTING 107 MG/DL (70-100); LDH LACTATE DEHYDROGENASE 204 U/L (87-241); POTASSIUM SERUM 3.8 MEQ/L (3.5-5.1); SODIUM LEVEL 139 MEQ/L (136-145); TOTAL PROTEIN 6.7 GM/DL (6.4-8.2); TROPONIN I < 0.02 NG/ML (< 0.10)
[2020-08-30 12:01] VITALS: BP 151/69
== END 2020-08-30 12:23 | disposition home or self-care (01) ==
LOC: M ED 09:08
DX: J12.82 Pneumonia due to coronavirus disease 2019 (principal); E66.9 Obesity, unspecified

== ENCOUNTER 2020-09-07 10:47 | Emergency (ER) | payer OTHER ==
[~2020-09-07] VITALS: Ht 172.7 cm; Wt 139.9 kg
[~2020-09-07 10:47] MED LIST changes: +IBUP200C33 PO
--- OUTSIDE RECORDS SUMMARY | 2020-09-07 10:56 | CCD ---
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 Role Phone Mariaa HAN MD Unavailable [...] Unavailable Unavailable Mariaa HAN MD Unavailable Unavailable GUILLE H LISA MO Unavailable Unavailable Mariaa HAN MD Unavailable Unavailable Mariaa HAN MD Unavailable Unavailable Mariaa HAN MD Unavailable Unavailable Mariaa HAN MD Unavailable Unavailable Mariaa HAN MD Unavailable Unavailable GUILLE H LISA MO Unavailable Unavailable Mariaa HAN MD Unavailable Unavailable GUILLE H LISA MO Unavailable Unavailable GUILLE H LISA MO Unavailable Unavailable Mariaa HAN MD Unavailable Unavailable [...] Unavailable LETTIERE, A WILLIAM PA Unavailable Unavailable Re-disclosure Warning The records that [...] is protected by Article 27-F of the [facility] Public Health law. If you continue you may have access to information: Regarding HIV / AIDS; Provided by facilities licensed or operated by the [facility] Office of Mental Health; or Provided by the [facility] Office for People With Developmental Disabilities. If such information is present, then the following [facility] mandated warning applies: This information has been [...] law may result in a fine or alf sentence or both. A general authorization for [...] Providers Location Date Indications Data Source(s ) TeleMedicine Phone E/M by Phys 11-20 Min [address] [place] [address] 09/03/2020 12:00:00 AM EST eCW1 ([facility]) Outpatient Attender: William TURNER [facility] 01/2021 08:30:00 AM EST MEDENT ([facility] Outpatient Attender: LISA HAN MD [facility] 08:15:00 AM EST MEDENT ([facility] Outpatient Attender: LISA HAN MD [facility] 04/2020 10:30:00 AM EST MEDENT ([facility] Outpatient Attender: WILLIAM morales 06/07/2020 01:45:00 PM EDT MEDENT ([facility] Medications Medication Brand [...] 08/01/2020 12:00:00 AM EST ORAL active MEDENT ([facility] 500 mg 07/18/2020 12:00:00 AM EST tablet 60 TAKE ONE TABLET BY MOUTH TWICE A DAY TAKE ONE TABLET BY MOUTH TWICE A DAY SOLD: 07/18/2020 [facility] Cyclobenzaprine hydrochloride 10 MG Oral Tablet CYCLOBENZAPR INE HCL 07/18/2020 12:00:00 AM EST tablet 30 TAKE ONE TABLET BY MOUTH AT BEDTIME NEEDED TAKE ONE TABLET BY MOUTH AT BEDTIME NEEDED SOLD: 07/18/2020 [facility] Cyclobenzaprine hydrochloride 10 MG Oral Tablet Cyclobenzapr ine HCL 07/18/2020 12:00:00 AM EST ORAL active M EDENT ([facility] Naproxen 500 MG Oral Tablet [Naprosyn] Naprosyn 07/18/2020 12:00:00 AM EST ORAL completed MEDENT ([facility] Insurance Providers Payer name Policy type / Coverage type Policy ID Covered alliance party ID Covered alliance party's relationship to sanchez Policy Sanchez Plan Information [facility] [id number] SP [id number] [facility] [id number] SP [id number] SELF PAY ONLY [id number] SP [id number] Umr/[facility]/[employer] (HMO) [id number] Self [id number] [employer] [id number] [employer] Risk MGMNT [place] Workers Compensation Jeannine f [employer] Commercial Self [employer] Commercial Self [employer] [place] Workers Compensation Self [employer] W/C [id number] SP [id number] [employer] RISK MANAGEMENT P [id number] S [id number] [employer] PPO S [id number] S [id number] OTHER W.C.EMPLOYER P [id number] S [id number] [facility] [id number] SP [id number] [employer] [id number] SP [id number] [employer] PPO P [id number] S [id number] Results ID Date Data Source [id number] 08/30/2020 10:04:00 AM EST MEDENT ([facility] Name Value Range Interpretation Code Description Data Sherry rce(s) Supporting Document(s) White Blood Count 4.5 10 4.0-10.0 Normal (applies to non-numeri c results) MEDENT ([facility] Red Blood Count 4.84 10 4.30-6.10 Normal (applies to non-numeric results) MEDENT ([facility] Hemoglobin 14.8 g/dL 13.5-17.5 Normal (applies to non-numeric resul ts) MEDENT ([facility] Hematocrit 43.7 % 42.0-52.0 Normal (applies to non-numeric resul ts) MED[facility] ([facility] Mean Corpuscular Hemoglobin 30.6 pg 27.0-33.0 Norm al (applies to non-numeric results) MEDENT ([facility] Mean Corpuscular Volume 90.3 fl 80.0-96.0 Normal ( applies to non-numeric results) MEDENT ([facility] ) Mean Corpuscular HGB Conc 33.9 g/dL 32.0-36.5 Normal (applies to non-numeric results) MEDENT ([facility] Red Cell Distribution Width 12.6 % 11.5-14.5 Norm al (applies to non-numeric results) MEDENT ([facility] Lymph % 23.8 % 24.0-44.0 Below low normal MEDENT ( [facility] Platelet Count, Automated 202 10 150-450 Normal (applies to non-numeric results) MEDENT ([facility] ) Neutrophils % 56.2 % 36.0-66.0 Normal (applies to non-numeric re sults) MEDENT ([facility] Eos % 1.8 % 0.0-3.0 Normal (applies to non-numeric resul ts) MEDENT ([facility] [place] % 15.5 % 0.0-5.0 Above high normal MEDENT ([facility] Baso % 0.7 % 0.0-1.0 Normal (applies to non-numeric resul ts) MEDENT ([facility] Nucleated Red Blood Cell % 0.0 % 0-0 Normal (applies to n on-numeric results) MEDENT ([facility] Immature Granulocyte % 2.0 % 0-3.0 Normal (applies to non-n umeric results) MEDENT ([facility] Neutrophils # 2.5 10 1.5-8.5 Normal (applies to non-numeric re sults) MEDENT ([facility] [place] # 0.7 10 0.0-0.8 Normal (applies to non-numeric resul ts) MEDENT ([facility] Lymph # 1.1 10 1.5-5.0 Below low normal MEDENT ( [facility] Eos # 0.1 10 0.0-0.5 Normal (applies to non-numeric resul ts) MEDENT ([facility] Baso # 0.0 10 0.0-0.2 Normal (applies to non-numeric resul ts) MEDENT ([facility] ID Date Data Source [id number] 08/30/2020 10:02:00 AM EST MEDENT ([facility] Name Value Range Interpretation Code Description Data Sherry rce(s) Supporting Document(s) Lactate dehydrogenase [Enzymatic activity/volume] in Serum o r Plasma 204 U/L 87-241 Normal (applies to non-numeric results) MEDENT ([facility] Ferritin [Mass/volume] in Serum or Plasma 540 ng/mL 26-388 Above high normal [facility] ([facility] Troponin I.cardiac [Mass/volume] in Serum or Plasma Laboratory t est result Normal (applies to non-numeric results) MEDENT ([facility] <content>Troponin I Reference Interval f or Siemens [place] LOCI:</content>
<content></content>
<content>99th Percentile= 0.00-0.045 ng/ml</content>
<content></content>
<content>Risk Stratification:</content>
<content><= 0.10 ng/ml Decreased Risk for Adverse Clinical</content>
<content>Events.</content>
<content>0.10-1.50 ng/ml Increased Risk for Adverse Clinical</content>
<content>Events. Evaluation of additional</content>
<content>criterion and/or repeat testing in 2-6</content>
<content>hours is suggested to rule out myocardial</content>
<content>damage.</content>
<content>>= 1.50 ng/ml Indicative of Myocardial Injury.</content>
<content></content> C reactive protein [Mass/volume] in Serum or Plasma by High sensitivity method 1.47 mg/dL 0.00-0.30 Above high normal NONI ([facility] ID Date Data Source [id number] 08/30/2020 10:02:00 AM EST MEDROHIT ([facility] Name Value Range Interpretation Code Description Data Sherry rce(s) Supporting Document(s) Glucose, Fasting 107 mg/dL 70-100 Above high normal M EDENT ([facility] Blood Urea Nitrogen 11 mg/dL 7-18 Normal (applies to non-nume kierra results) MEDROHIT ([facility] Glomerular Filtration Rate Laboratory test result Normal (applies to non- numeric results) NONI ([facility] ) <content>Units are mL/min/1.73 m2</content>
<content></content>
<content>Chronic Kidney Disease Staging per NKF:</content>
<content></content>
<content>Stage I & II GFR >=60 Normal to Mildly Decreased</content>
<content>Stage III GFR 30- 59 Moderately Decreased</content>
<content>Stage IV GFR 15-29 Severely Decreased</content>
<content>Stage V GFR <15 Very Little GFR Left</content>
<content>ESRD GFR <15 on INFANTRYMAN</content>
<content></content> Creatinine For GFR 0.93 mg/dL 0.70-1.30 Normal (applies to non -numeric results) MED[facility] ( [facility] Sodium Level 139 meq/L 136-145 Normal (applies to non-numeric res ults) MEDENT ([facility] Potassium Serum 3.8 meq/L 3.5-5.1 Normal (applies to non-numeric results) MEDENT ([facility] Anion Gap 9 meq/L 8-16 Normal (applies to non-numeric resul ts) MEDENT ( [facility] Carbon Dioxide Level 26 meq/L 21-32 Normal (applies to non-num kyra results) MEDENT ([facility] Chloride Level 104 meq/L 98-107 Normal (applies to non-numeric r esults) MEDENT ([facility] Alt/SGPT 45 U/L 12-78 Normal (applies to non-numeric resul ts) MEDENT ([facility] Ast/Sgot 18 U/L 7-37 Normal (applies to non-numeric resul ts) MEDENT ([facility] Calcium Level 8.9 mg/dL 8.5-10.1 Normal (applies to non-numeric re sults) [facility] ([facility] Alkaline Phosphatase 86 U/L 45-117 Normal (applies to non-num kyra results) [facility] ([facility] Total Protein 6.7 GM/DL 6.4-8.2 Normal (applies to non-numeric re sults) MEDENT ([facility] Bilirubin,Total 0.4 mg/dL 0.2-1.0 Normal (applies to non-numeric results) [facility] ([facility] Albumin 3.6 GM/DL 3.2-5.2 Normal (applies to non-numeric resul ts) MEDENT ([facility] Albumin/Globulin Ratio 1.2 Normal (applies to non-n umeric results) [facility] ([facility] ID Date Data Source [id number] 08/30/2020 10:02:00 AM EST MEDENT ([facility] Name Value Range Interpretation Code Description Data Sherry rce(s) Supporting Document(s) Lactate [Mass/volume] in Serum or Plasma 2.0 mmol/L 0.4-2.0 Normal (applies to non-numeric results) MEDENT ([facility]) Y/N query for Sepsis Lactate Rule: Y ID Date Data Source [id number] 08/26/2020 12:00:00 AM EST [facility] Name Value Range Interpretation Code Description Data Sherry rce(s) Supporting Document(s) SARS-CoV-2 (COVID-19) RNA [Presence] in Respiratory specimen by MARCK with probe detection Positive for 2019-nCoV [facility] This lab was ordered by [facility] and reported by [facility]. ID Date Data Source [id number] 08/15/2020 10:27:00 AM EST MEDENT ([facility] Name Value Range Interpretation Code Description Data Sherry rce(s) Supporting Document(s) Chol 208 mg/dL 0-200 Above high normal MEDENT ([facility] NORMAL RANGES Age WBC RBC [...] 2-19 YEARS EXCLUSIVE. Trig 166 mg/dL 35-200 [facility] ([facility] NORMAL RANGES [...] HCT IS 5% LESS SOURCE FOR DATA: FreshT 1800 OPERATION MANUAL( AUTOMATED BLOOD COUNTS AND [...] in Serum or Plasma 46 mg/dL 35-55 MEDENT ([facility] NORMAL RANGES [...] HCT IS 5% LESS SOURCE FOR DATA: FreshT 1800 OPERATION MANUAL( AUTOMATED BLOOD COUNTS AND [...] 2-19 YEARS EXCLUSIVE. LDL_C 128 Calc 75-129 [facility] ([facility] NORMAL RANGES [...] HCT IS 5% LESS SOURCE FOR DATA: [employer] DYN 1800 OPERATION MANUAL( AUTOMATED BLOOD COUNTS [...] EXCLUSIVE. Cho/HDL Ratio 4.5 CALC NONI ([facility] NORMAL RANGES Age WBC RBC [...] HCT IS 5% LESS SOURCE FOR DATA: FreshT 1800 OPERATION MANUAL( AUTOMATED BLOOD COUNTS AND [...] 2-19 YEARS EXCLUSIVE. ID Date Data Source [id number] 08/15/2020 10:27:00 AM EST MEDENT ([facility] Name Value Range Interpretation Code Description Data Sherry rce(s) Supporting Document(s) BUN 12 mg/dL 8- [facility] ([facility] NORMAL RANGES [...] HCT IS 5% LESS SOURCE FOR DATA: FreshT 1800 OPERATION MANUAL( AUTOMATED BLOOD COUNTS AND [...] 2-19 YEARS EXCLUSIVE. Glu 110 mg/dL 70-110 [facility] ([facility] NORMAL RANGES [...] HCT IS 5% LESS SOURCE FOR DATA: FreshT 1800 OPERATION MANUAL( AUTOMATED BLOOD COUNTS AND [...] YEARS EXCLUSIVE. BUN/Creatinine Ratio 13.3 CALC MEDENT ([facility] NORMAL RANGES Age [...] HCT IS 5% LESS SOURCE FOR DATA: FreshT 1800 OPERATION MANUAL( AUTOMATED BLOOD COUNTS AND [...] 2-19 YEARS EXCLUSIVE. Creat 0.9 mg/dL 0.7-1.2 [facility] ([facility] NORMAL RANGES [...] HCT IS 5% LESS SOURCE FOR DATA: FreshT 1800 OPERATION MANUAL( AUTOMATED BLOOD COUNTS AND [...] 2-19 YEARS EXCLUSIVE. K 4.1 mmol/L 3.5-5.1 [facility] ([facility] NORMAL RANGES Age WBC RBC [...] HCT IS 5% LESS SOURCE FOR DATA: [employer] DYN 1800 OPERATION MANUAL( AUTOMATED BLOOD COUNTS [...] 2-19 YEARS EXCLUSIVE. CL 104.8 mmol/L 98.0-107.0 [facility] ([facility] NORMAL RANGES Age WBC RBC [...] HCT IS 5% LESS SOURCE FOR DATA: FreshT 1800 OPERATION MANUAL( AUTOMATED BLOOD COUNTS AND [...] 2-19 YEARS EXCLUSIVE. Na 138 mmol/L 136-145 [facility] ([facility] NORMAL RANGES Age WBC RBC [...] HCT IS 5% LESS SOURCE FOR DATA: FreshT 1800 OPERATION MANUAL( AUTOMATED BLOOD COUNTS AND [...] 2-19 YEARS EXCLUSIVE. CA 9.0 mg/dL 8.6-10.2 [facility] ([facility] NORMAL RANGES [...] HCT IS 5% LESS SOURCE FOR DATA: [employer] DYN 1800 OPERATION MANUAL( AUTOMATED BLOOD COUNTS [...] 2-19 YEARS EXCLUSIVE. TP 6.6 g/dL 6.6-8.7 MEDENT ([facility] NORMAL [...] HCT IS 5% LESS SOURCE FOR DATA: FreshT 1800 OPERATION MANUAL( AUTOMATED BLOOD COUNTS AND [...] Co2 21.0 mmol/L 22.0-29.0 Below low normal [facility] ([facility] NORMAL RANGES [...] HCT IS 5% LESS SOURCE FOR DATA: FreshT 1800 OPERATION MANUAL( AUTOMATED BLOOD COUNTS AND [...] 2-19 YEARS EXCLUSIVE. A/G Ratio 1.9 CALC [facility] ([facility] NORMAL RANGES [...] HCT IS 5% LESS SOURCE FOR DATA: FreshT 1800 OPERATION MANUAL( AUTOMATED BLOOD COUNTS AND [...] HCT IS 5% LESS SOURCE FOR DATA: FreshT 1800 OPERATION MANUAL( AUTOMATED BLOOD COUNTS AND [...] AGED 2-19 YEARS EXCLUSIVE. Globulin 2.3 CALC MEDENT ([facility] [...] HCT IS 5% LESS SOURCE FOR DATA: [employer] DYN 1800 OPERATION MANUAL( AUTOMATED BLOOD COUNTS [...] 2-19 YEARS EXCLUSIVE. Alp 83.1 U/L 40-129 [facility] ([facility] NORMAL RANGES [...] HCT IS 5% LESS SOURCE FOR DATA: FreshT 1800 OPERATION MANUAL( AUTOMATED BLOOD COUNTS AND [...] HCT IS 5% LESS SOURCE FOR DATA: FreshT 1800 OPERATION MANUAL( AUTOMATED BLOOD COUNTS AND [...] YEARS EXCLUSIVE. Ast (Sgot) 23 U/L 0-40 [facility] ([facility] NORMAL RANGES Age WBC RBC [...] HCT IS 5% LESS SOURCE FOR DATA: [employer] DYN 1800 OPERATION MANUAL( AUTOMATED BLOOD COUNTS [...] 2-19 YEARS EXCLUSIVE. Tbili 0.54 mg/dL 0.0-1.2 [facility] ([facility] NORMAL RANGES Age [...] HCT IS 5% LESS SOURCE FOR DATA: FreshT 1800 OPERATION MANUAL( AUTOMATED BLOOD COUNTS AND [...] HCT IS 5% LESS SOURCE FOR DATA: FreshT 1800 OPERATION MANUAL( AUTOMATED BLOOD COUNTS AND [...] HCT IS 5% LESS SOURCE FOR DATA: [employer] DYN 1800 OPERATION MANUAL( AUTOMATED BLOOD COUNTS [...] HCT IS 5% LESS SOURCE FOR DATA: FreshT 1800 OPERATION MANUAL( AUTOMATED BLOOD COUNTS AND [...] INDIVIDUALA AGED 2-19 YEARS EXCLUSIVE. eGFR Non-Afr. Iraqi 96 # MEDENT ([facility] [...] HCT IS 5% LESS SOURCE FOR DATA: FreshT 1800 OPERATION MANUAL( AUTOMATED BLOOD COUNTS AND [...] 2-19 YEARS EXCLUSIVE. ID Date Data Source [id number] 08/15/2020 10:27:00 AM NAOMI CHENEY ([facility] Name Value Range Interpretation Code Description Data Sherry rce(s) Supporting Document(s) WBC 6.2 10E3/uL 4.1-10.9 NONI ([facility] NORMAL RANGES Age [...] HCT IS 5% LESS SOURCE FOR DATA: FreshT 1800 OPERATION MANUAL( AUTOMATED BLOOD COUNTS AND [...] 2-19 YEARS EXCLUSIVE. RBC 4.95 10E6/uL 4.20-6.30 MED[facility] ([facility] NORMAL RANGES Age WBC [...] HCT IS 5% LESS SOURCE FOR DATA: FreshT 1800 OPERATION MANUAL( AUTOMATED BLOOD COUNTS AND [...] 2-19 YEARS EXCLUSIVE. HGB 15.6 g/dL 12.0-18.0 [facility] ([facility] NORMAL RANGES Age WBC [...] HCT IS 5% LESS SOURCE FOR DATA: FreshT 1800 OPERATION MANUAL( AUTOMATED BLOOD COUNTS AND [...] 2-19 YEARS EXCLUSIVE. HCT 45.3 % 37.0-51.0 [facility] ([facility] NORMAL RANGES [...] HCT IS 5% LESS SOURCE FOR DATA: FreshT 1800 OPERATION MANUAL( AUTOMATED BLOOD COUNTS AND [...] 2-19 YEARS EXCLUSIVE. MCH 31.5 pg 26.0-32.0 MEDENT ([facility] NORMAL [...] HCT IS 5% LESS SOURCE FOR DATA: FreshT 1800 OPERATION MANUAL( AUTOMATED BLOOD COUNTS AND [...] 2-19 YEARS EXCLUSIVE. MCV 91.5 fL 80.0-97.0 [facility] ([facility] NORMAL [...] 2-19 YEARS EXCLUSIVE. MCHC 34.4 g/dL 31.0-36.0 [facility] ([facility] NORMAL RANGES [...] HCT IS 5% LESS SOURCE FOR DATA: FreshT 1800 OPERATION MANUAL( AUTOMATED BLOOD COUNTS AND [...] YEARS EXCLUSIVE. PLT 228 10E3/uL 140-440 MEDENT ([facility] NORMAL RANGES Age [...] HCT IS 5% LESS SOURCE FOR DATA: FreshT 1800 OPERATION MANUAL( AUTOMATED BLOOD COUNTS AND [...] 2-19 YEARS EXCLUSIVE. RDW-CV 13.2 % 11.5-14.5 [facility] ([facility] NORMAL RANGES [...] HCT IS 5% LESS SOURCE FOR DATA: [employer] DYN 1800 OPERATION MANUAL( AUTOMATED BLOOD COUNTS [...] 2-19 YEARS EXCLUSIVE. Lym% 25.2 % 10.0-58.5 [facility] ([facility] NORMAL RANGES [...] HCT IS 5% LESS SOURCE FOR DATA: FreshT 1800 OPERATION MANUAL( AUTOMATED BLOOD COUNTS AND [...] 2-19 YEARS EXCLUSIVE. MXD% 8.9 % 0.1-24.0 MEDENT ([facility] NORMAL [...] HCT IS 5% LESS SOURCE FOR DATA: FreshT 1800 OPERATION MANUAL( AUTOMATED BLOOD COUNTS AND [...] 2-19 YEARS EXCLUSIVE. Neut% 65.9 % 37.0-92.0 [facility] ([facility] NORMAL [...] HCT IS 5% LESS SOURCE FOR DATA: FreshT 1800 OPERATION MANUAL( AUTOMATED BLOOD COUNTS AND [...] 2-19 YEARS EXCLUSIVE. MXD# 0.6 10E3/uL 0.0-1.8 [facility] ([facility] NORMAL RANGES Age [...] HCT IS 5% LESS SOURCE FOR DATA: FreshT 1800 OPERATION MANUAL( AUTOMATED BLOOD COUNTS AND [...] 2-19 YEARS EXCLUSIVE. Lym# 1.6 10E3/uL 0.6-4.1 MEDROHIT ([facility] NORMAL RANGES Age [...] HCT IS 5% LESS SOURCE FOR DATA: FreshT 1800 OPERATION MANUAL( AUTOMATED BLOOD COUNTS AND [...] 2-19 YEARS EXCLUSIVE. Neut# 4.0 % 2.0-7.8 [facility] ([facility] NORMAL RANGES [...] HCT IS 5% LESS SOURCE FOR DATA: FreshT 1800 OPERATION MANUAL( AUTOMATED BLOOD COUNTS AND [...] 2-19 YEARS EXCLUSIVE. MPV 10.5 fL 9.0-13.0 [facility] ([facility] NORMAL RANGES [...] HCT IS 5% LESS SOURCE FOR DATA: FreshT 1800 OPERATION MANUAL( AUTOMATED BLOOD COUNTS AND [...] 2-19 YEARS EXCLUSIVE. ID Date Data Source [id number] 08/15/2020 10:27:00 AM EST MEDROHIT ([facility] Name Value Range Interpretation Code Description Data Sherry rce(s) Supporting Document(s) Prostate specific Ag [Mass/volume] in Serum or Plasma 0.60 ng/mL 0.0- 4.0 MEDENT ([facility] Procedure Social History Code Duration Value Status Description Data Source(s ) Smoking 06/07/2020 12:00:00 AM EDT Patient has never smoked co mpleted Patient has never smoked MEDENT ([facility], [facility]) Vital Signs ID Date Data Source UNK Name Value Range Interpretation Code Description Data Source(s) Body mass index (BMI) [Ratio] 44.85 kg/m2 44.85 kg/m2 [facility] Body height 68 [in_i] 68 [in_i] eCW1 ([facility]) Body weight 295 [lb_av] 295 [lb_av] eCW1 ([facility]) Oxygen saturation in Arterial blood by Pulse oximetry 97 % 97 % MEDENT ([facility] Body mass index (BMI) [Ratio] 46.8 kg/m2 46.8 k g/m2 MEDENT ([facility] [place] body weight 154 [lb_av] 154 [lb_av] MEDEN T ([facility] Body weight 308.00 [lb_av] 308.00 [lb_av] MEDEN T ([facility] Body height 68 [in_i] 68 [in_i] MEDENT ([facility] 5'8" Respiratory rate 16 [...] k g/m2 MEDENT ([facility] [place] body weight 154 [lb_av] 154 [lb_av] MEDEN T ([facility] Body weight 306.00 [lb_av] 306.00 [lb_av] MEDEN T ([facility] Body height 68 [in_i] 68 [in_i] MEDENT ([facility] 5'8" Respiratory rate 18 [...] [Ratio] 47.1 kg/m2 47.1 k g/m2 MEDENT ([facility] [place] body weight 154 [lb_av] 154 [lb_av] MEDEN T ([facility] Body weight 310.00 [lb_av] 310.00 [lb_av] MEDEN T ([facility] Body height 68 [in_i] 68 [in_i] MEDENT ([facility] 5'8" Respiratory rate 18 /min 18 /min MEDENT ( [facility] Heart rate 90 /min 90 /min MEDENT ([facility] Body temperature 98.3 [degF] 98.3 [degF] MEDENT ([facility] Diastolic blood pressure 92 mm[Hg] 92 mm[Hg] MEDENT ([facility] Systolic blood pressure 124 mm[Hg] 124 mm[Hg] M EDENT ([facility] Body mass index (BMI) [Ratio] 41.0 kg/m2 41.0 k g/m2 MEDENT ([facility], [facility]) Body height 68 [in_i] 68 [in_i] MEDENT ([facility], [facility]) 5'8" Body weight 270.00 [lb_av] 270.00 [lb_av] MEDEN T ([facility], [facility]) Body temperature 97.8 [degF] 97.8 [degF] MEDENT ([facility], [facility]) Oxygen saturation in Arterial blood by Pulse oximetry 97 % 97 % MEDENT ([facility], [facility]) Respiratory rate 16 /min 16 /min MEDENT ( [facility], [facility]) Heart rate 84 /min 84 /min MEDENT ([facility], [facility]) Diastolic blood pressure 102 mm[Hg] 102 mm[Hg] MEDENT ([facility], [facility]) Systolic blood pressure 149 mm[Hg] 149 mm[Hg] M EDENT ([facility], [facility]) Oxygen saturation in Arterial blood by Pulse oximetry 98 % 98 % MEDENT ([facility] Body mass index (BMI) [Ratio] 42.7 kg/m2 42.7 k g/m2 MEDENT ([facility] [place] body weight 154 [lb_av] 154 [lb_av] MEDEN T ([facility] Body weight 281.00 [lb_av] 281.00 [lb_av] MEDEN T ([facility] Body height 68 [in_i] 68 [in_i] MEDENT ([facility] 5'8" Respiratory rate 18 /min 18 /min MEDENT ( [facility] Heart rate 88 /min 88 /min NONI ([facility] Body temperature 97.8 [degF] 97.8 [degF] NONI ([facility] Diastolic blood pressure 80 mm[Hg] 80 mm[Hg] NONI ([facility] Systolic blood pressure 136 mm[Hg] 136 mm[Hg] Savage BENTLEY ([facility]
--- OUTSIDE RECORDS SUMMARY | 2020-09-07 10:56 | CCD | Continuity of Care Document ---
Author Author Wilmer VALADEZ [facility] Organization Unknown Address [address] [place] [id number] Phone [phone] Problems Description No Information Available Social History Type Date Description Comments Sex Unknown Smokeless Tobacco Former Smokeless Tobacco User [id number] ETOH Use Rarely consumes beer 12 BEER [...] by mouth at bedtime as needed 30tabs Katehrine Plascencia M.D. 07/18/2020 History Medications Naprosyn 500mg Tablets 1 by mouth twice a day 60tabs Abiel Plascencia M.D. 07/18/20 20 - 08/01/2020 Immunizations Description No Information Available Vital Signs Date Vital Result Comment 08/15/2020 9:25am BP Systolic 134 mmHg BP Diastolic 90 mmHg Body Temperature 97.8 F Heart Rate 103 /min Respiratory Rate 16 /min Height 68 inches 5'8" Weight 308.00 lb [place] Body Weight 154 lb BMI (Body Mass Index) 46.8 kg/m2 O2 % BldC Oximetry 97 % 08/01/2020 10:58am BP Systolic 128 mmHg BP Diastolic 88 mmHg Body Temperature 98.6 F Heart Rate 88 /min Respiratory Rate 18 /min Height 68 inches 5'8" Weight 306.00 lb [place] Body Weight 154 lb BMI (Body Mass Index) 46.5 kg/m2 O2 % BldC Oximetry 97 % Results Test Acquired Date Facility Test Result H/L Range Note CBC With Differential 08/30/2020 [facility] (Interface) [phone] White Blood Count 4.5 10 Normal 4.0-10.0 Red Blood Count 4.84 10 Normal 4.30-6.10 Hemoglobin 14.8 g/dL Normal 13.5-17.5 Hematocrit 43.7 % Normal 42.0-52.0 Mean Corpuscular Volume 90.3 fl Normal 80.0-96.0 Mean Corpuscular Hemoglobin 30.6 pg Normal 27.0-33.0 Mean Corpuscular HGB Conc 33.9 g/dL Normal 32.0-36.5 Red Cell Distribution Width 12.6 % Normal 11.5-14.5 Platelet Count, Automated 202 10 Normal 150-450 Neutrophils % 56.2 % Normal 36.0-66.0 Lymph % 23.8 % Low 24.0-44.0 [place] % 15.5 % High 0.0-5.0 Eos % 1.8 % Normal 0.0-3.0 Baso % 0.7 % Normal 0.0-1.0 Immature Granulocyte % 2.0 % Normal 0-3.0 Nucleated Red Blood Cell % 0.0 % Normal 0-0 Neutrophils # 2.5 10 Normal 1.5-8.5 Lymph # 1.1 10 Low 1.5-5.0 [place] # 0.7 10 Normal 0.0-0.8 Eos # 0.1 10 Normal 0.0-0.5 Baso # 0.0 10 Normal 0.0-0.2 Laboratory test finding 08/30/2020 [facility] (Interface) [phone] Lactic Acid Sepsis Protocol 2.0 mmol/L Normal 0.4- 2.0 1 Comprehensive Metabolic Profil 08/30/2020 [facility] (Interface) [phone] Glucose, Fasting 107 mg/dL High 70-100 Blood Urea Nitrogen 11 mg/dL Normal 7-18 Creatinine For GFR 0.93 mg/dL Normal 0.70-1.30 Glomerular Filtration Rate > 60.0 Normal >56 2 Sodium Level 139 mEq/L Normal 136-145 Potassium Serum 3.8 mEq/L Normal 3.5-5.1 Chloride Level 104 mEq/L Normal 98-107 Carbon Dioxide Level 26 mEq/L Normal 21-32 Anion Gap 9 mEq/L Normal 8-16 Calcium Level 8.9 mg/dL Normal 8.5-10.1 Ast/Sgot 18 U/L Normal 7-37 Alt/SGPT 45 U/L Normal 12-78 Alkaline Phosphatase 86 U/L Normal 45-117 Bilirubin,Total 0.4 mg/dL Normal 0.2-1.0 Total Protein 6.7 GM/DL Normal 6.4-8.2 Albumin 3.6 GM/DL Normal 3.2-5.2 Albumin/Globulin Ratio 1.2 Normal Laboratory test finding 08/30/2020 [facility] (Interface) [phone] LDH Lactate Dehydrogenase 204 U/L Normal 87-241 Troponin I < 0.02 NG/ML Normal < 0.10 3 Ferritin 540 NG/ML High 26-388 C Reactive Protein Quantitativ 1.47 mg/dL High 0.00-0.30 Laboratory test finding 08/15/2020 [facility] PSA, Total 0.60 ng/mL 0.0 - 4.0 CBC 08/15/2020 [facility] WBC 6.2 10E3/uL 4.1 - 10.9 4 RBC 4.95 10E6/uL 4.20 - 6.30 HGB [...] Gap 17 mmol/L eGFR 112 # Calc 5 eGFR Non-Afr. Pakistani 96 # Calc 6 Lipid Panel 08/15/2020 [facility] Chol 208 mg/dL High 0 - 200 Trig 166 mg/dL 35 - 200 HDL 46 mg/dL 35 - 55 LDL_C 128 Calc 75 - 129 Cho/HDL Ratio 4.5 CALC 1 Y/N query for Sepsis Lactate Rule: Y 2 Units are mL/min/1.73 m2 Chronic Kidney Disease Staging per NKF: Stage I & II GFR >=60 Normal to Mildly Decreased Stage III GFR 30-59 Moderately Decreased Stage IV GFR 15-29 Severely Decreased Stage V GFR <15 Very Little GFR Left ESRD GFR <15 on TOWER DIRECTOR 3 Troponin I Reference Interva l for [employer] LOCI: 99th Percentile= 0.00-0.045 ng/ml Risk Stratification: <= 0.10 ng/ml Decreased Risk for Adverse Clinical Events. 0.10-1.50 ng/ml Increased Risk for Adv erse Clinical Events. Evaluation of additional criterion and/or repeat testing in 2-6 hours is suggested to rule out myocardial damage. >= 1.50 ng/ml Indicative of Myocardial Injury. 4 NORMAL RANGES Age WBC RBC HGB HCT [...] HCT IS 5% LESS SOURCE FOR DATA: [employer] 1800 OPERATION MANUAL( AUTOMATED BLOOD COUNTS AND [...] ADOLESCENTS REPRESENTS INDIVIDUALA AGED 2-19 YEARS EXCLUSIVE. 5 CKD-EPI 6 CKD-EPI Procedures Description No Information Available Medical Devices Description No Information Available Encounters Type Date Location Provider Dx Diagnosis Office Visit 08/15/2020 9:30a [facility] Martin Valadez, A Z00.01 Encounter for general adult medical exam w abnormal findings E66.9 Obesity, unspecified R35.1 Nocturia R03.0 Elevated blood-pressure read ing, w/o diagnosis of htn Office Visit 08/01/2020 9:15a [place] [facility] Abiel Plascencia M. D. M54.31 Sciatica, right side Office Visit 07/18/2020 11:30a [place] [facility] Abiel Plascencia M. D. M54.31 Sciatica, right side Assessments Date Code Description Provider 08/20/2020 R05 Cough Jerica Stroud, [facility] 08/20/2020 R09.82 [facility]/2020 R51.9 Headache, unspecified [facility] 08/20/2020 Z20.828 Contact with and (figueroa spected) exposure to other viral communicable diseases [facility] 08/15/2020 Z00.01 Encounter for genera l adult medical examination with abnormal findings Martin Valadez, [facility] 08/15/2020 E66.9 Obesity, unspecified Paulo Valadez, [facility] 08/15/2020 R35.1 Nocturia Martin Valadez, [facility] 08/15/2020 R03.0 Elevated blood-press ure reading, without diagnosis of hypertension Martin Valadez, [facility] 08/01/2020 M54.31 Sciatica, right side Katherine Plascencia M.D. 07/18/2020 M54.31 Sciatica, right side Katherine Plascencia M.D. Plan of Treatment Future Appointment(s):* 11/21/2020 10:00 am - Martin Valadez RPA at [place] [facility] Functional Status Description No Information Available Mental Status Description No Information Available Referrals Refer to Reason for Referral Status Appt Date [facility] Orthopedics right thigh pain- eval and rx Sent [address] [place] [address] [phone]
--- OUTSIDE RECORDS SUMMARY | 2020-09-07 10:56 | CCD | Continuity of Care Document ---
Author Author Wilmer VALADEZ [facility] Organization Unknown Address [address] [place] [id number] Phone [phone] Problems Description No Information Available Social History Type Date Description Comments Sex Unknown Smokeless Tobacco Former Smokeless Tobacco User [id number] ETOH Use Rarely consumes beer 12 BEER [...] Height 68 inches 5'8" Weight 308.00 lb [place] Body Weight 154 lb BMI (Body Mass Index) 46.8 kg/m2 O2 % BldC Oximetry 97 % 08/01/2020 10:58am BP Systolic 128 mmHg BP Diastolic 88 mmHg Body Temperature 98.6 F Heart Rate 88 /min Respiratory Rate 18 /min Height 68 inches 5'8" Weight 306.00 lb [place] Body Weight 154 lb BMI (Body Mass Index) 46.5 kg/m2 O2 % BldC Oximetry 97 % Results Test Acquired Date Facility Test Result H/L Range Note CBC With Differential 08/30/2020 [facility] (Interface) [phone] White Blood Count 4.5 10 Normal 4.0-10.0 [...] 36.0-66.0 Lymph % 23.8 % Low 24.0-44.0 [place] % 15.5 % High 0.0-5.0 Eos % 1.8 % Normal 0.0-3.0 Baso % 0.7 % Normal 0.0-1.0 Immature Granulocyte % 2.0 % Normal 0-3.0 Nucleated Red Blood Cell % 0.0 % Normal 0-0 Neutrophils # 2.5 10 Normal 1.5-8.5 Lymph # 1.1 10 Low 1.5-5.0 [place] # 0.7 10 Normal 0.0-0.8 Eos # 0.1 10 Normal 0.0-0.5 Baso # 0.0 10 Normal 0.0-0.2 Laboratory test finding 08/30/2020 [facility] (Interface) [phone] Lactic Acid Sepsis Protocol 2.0 mmol/L Normal 0.4- 2.0 1 Comprehensive Metabolic Profil 08/30/2020 [facility] (Interface) [phone] Glucose, Fasting 107 mg/dL High 70-100 Blood [...] Ratio 1.2 Normal Laboratory test finding 08/30/2020 [facility] (Interface) [phone] LDH Lactate Dehydrogenase 204 U/L Normal 87-241 [...] eGFR 112 # Calc 5 eGFR Non-Afr. [place] 96 # Calc 6 Lipid Panel 08/15/2020 [...] Little GFR Left ESRD GFR <15 on MUSIC RESEARCHER 3 Troponin I Reference Interva l for [employer] LOCI: 99th Percentile= 0.00-0.045 ng/ml Risk Stratification: [...] HCT IS 5% LESS SOURCE FOR DATA: [employer] 1800 OPERATION MANUAL( AUTOMATED BLOOD COUNTS AND [...] Provider Dx Diagnosis Office Visit 08/15/2020 9:30a [facility] Martin Valadez, A Z00.01 Encounter for general adult medical exam w abnormal findings E66.9 Obesity, unspecified R35.1 Nocturia R03.0 Elevated blood-pressure read ing, w/o diagnosis of htn Office Visit 08/01/2020 9:15a [facility] Abiel Plascencia M. D. M54.31 Sciatica, right side Office Visit 07/18/2020 11:30a [facility] Abiel Plascencia M. D. M54.31 Sciatica, right side Assessments Date Code Description Provider 08/20/2020 R05 Cough Jerica Stroud, [facility] 08/20/2020 R09.82 [facility]/2020 R51.9 Headache, unspecified [facility] 08/20/2020 Z20.828 Contact with and (figueroa spected) exposure to other viral communicable diseases [facility] 08/15/2020 Z00.01 Encounter for genera l adult [...] 10:00 am - Martin Valadez RPA at [facility] Functional Status Description No Information Available Mental Status Description No Information Available Referrals Refer to Reason for Referral Status Appt Date [facility] Orthopedics right thigh pain- eval and rx Sent [address] [place] [address] [phone]
[2020-09-07] MEDS ORDERED: ACET-683 PO (11:14)
--- NOTE | 2020-09-07 11:26 | REP ---
INDICATION: fever. COMPARISON: Comparison radiograph 30 August 2020.. TECHNIQUE: Portable upright chest radiograph. FINDINGS: There is thin linear opacity in the left base consistent with fibrosis. This is unchanged from June 22, 2018. No definite acute infiltrate is seen. Pulmonary vasculature is not increased. Pleural angles are sharp. No bony abnormality is seen. Heart size is near the upper range of normal unchanged. IMPRESSION: No definite infiltrate. Linear fibrosis left base. <Electronically signed by Nathaniel Weiss > 09/07/20 [id number]
--- OUTSIDE RECORDS SUMMARY | 2020-09-07 11:26 | CCD ---
Author Author [facility] Organization [facility] Address Unknown Phone Unavailable Care Team Providers Care Choirmaster Name Role Phone Mariaa HAN MD Unavailable [...] Unavailable Allyson, D William PA Unavailable Unavailable Allsyon, D William PA Unavailable Unavailable Allyson, D [...] is protected by Article 27-F of the [facility] Public Health law. If you continue you may have access to information: Regarding HIV / AIDS; Provided by facilities licensed or operated by the [facility] Office of Mental Health; or Provided by the [facility] Office for People With Developmental Disabilities. If such information is present, then the following [facility] mandated warning applies: This information has been [...] law may result in a fine or intermediate sentence or both. A general authorization for [...] Phone E/M by Phys [phone] Min [address] [place] [address] 09/03/2020 12:00:00 AM EST eCW1 ([facility]) Outpatient Attender: William TURNER [facility] 01/2021 08:30:00 AM EST MEDENT ([facility] Outpatient Attender: LISA HAN MD [facility] 08:15:00 AM EST MEDENT ([facility] Outpatient Attender: LISA HAN MD [facility] 04/2020 10:30:00 AM EST MEDENT ([facility] Outpatient Attender: WILLIAM morales 06/07/2020 01:45:00 PM EDT MEDENT ([facility] Medications Medication Brand [...] 08/01/2020 12:00:00 AM EST ORAL active MEDENT ([facility] 500 mg 07/18/2020 12:00:00 [...] 12:00:00 AM EST ORAL active M EDENT ([facility] Naproxen 500 MG Oral Tablet [Naprosyn] Naprosyn 07/18/2020 12:00:00 AM EST ORAL completed MEDENT ([facility] Insurance Providers Payer name Policy type / Coverage type Policy ID Covered constitution party ID Covered constitution party's relationship to sanchez Policy Sanchez Plan Information [facility] [id number] SP [id number] [facility] [id number] SP [id number] SELF PAY ONLY [id number] SP [id number] [employer] (HMO) [id number] Self [id number] [employer] [id number] [employer] Risk [employer] [place] [employer] Compensation Jeannine f [employer] Commercial Self [employer] Commercial Self [employer] Workers Compensation Self [employer] W/C [id number] SP [id number] [employer] RISK MANAGEMENT P [id number] S [id number] [employer] PPO S [id number] S [id number] OTHER W.C.EMPLOYER P [id number] S [id number] [facility] [id number] SP [id number] [employer] [id number] SP [id number] [employer] PPO P [id number] S [id number] Results ID Date Data Source [id number] 08/30/2020 10:04:00 AM EST MEDENT ([facility] Name Value Range Interpretation Code Description Data Sherry rce(s) Supporting Document(s) White Blood Count 4.5 10 4.0-10.0 Normal (applies to non-numeri c results) MEDENT ([facility] Red Blood Count 4.84 10 4.30-6.10 Normal (applies to non-numeric results) MEDENT ([facility] Hemoglobin 14.8 g/dL 13.5-17.5 Normal (applies to non-numeric resul ts) MEDENT ([facility] Hematocrit 43.7 % 42.0-52.0 Normal (applies to non-numeric resul ts) MEDENT ([facility] Mean Corpuscular Hemoglobin 30.6 pg 27.0-33.0 Norm al (applies to non-numeric results) MEDENT ([facility] Mean Corpuscular Volume 90.3 fl 80.0-96.0 Normal ( applies to non-numeric results) MEDENT ([facility] ) Mean Corpuscular HGB [...] resul ts) MEDENT ([facility] Mcduffie % 15.5 % 0.0-5.0 Above high normal [...] re sults) MEDENT ([facility] Mcduffie # 0.7 10 0.0-0.8 Normal (applies to non-numeric resul ts) MEDENT ([facility] Lymph # 1.1 10 1.5-5.0 Below low normal MEDENT ( [facility] Eos # 0.1 10 0.0-0.5 Normal (applies to non-numeric resul ts) MEDENT ([facility] Baso # 0.0 10 0.0-0.2 Normal (applies to non-numeric resul ts) MEDENT ([facility] ID Date Data Source [id number] 08/30/2020 10:02:00 AM EST MEDENT ([facility] Name Value Range Interpretation Code Description Data Sherry rce(s) Supporting Document(s) Lactate dehydrogenase [Enzymatic activity/volume] in Serum o r Plasma 204 U/L 87-241 Normal (applies to non-numeric results) MEDENT ([facility] Ferritin [Mass/volume] in Serum or Plasma 540 ng/mL 26-388 Above high normal [facility] ([facility] Troponin I.cardiac [Mass/volume] in Serum or Plasma Laboratory t est result Normal (applies to non-numeric results) MEDENT ([facility] <content>Troponin I Reference Interval f or Siemens [place] LOCI:</content>
<content></content>
<content>99th Percentile= 0.00-0.045 ng/ml</content>
<content></content>
[...] [facility] ID Date Data Source [id number] 08/30/2020 10:02:00 AM EST MEDROHIT ([facility] Name Value Range Interpretation Code Description Data Sherry rce(s) Supporting Document(s) Glucose, Fasting 107 mg/dL 70-100 Above high normal M EDENT ([facility] Blood Urea Nitrogen 11 mg/dL 7-18 Normal (applies to non-nume kierra results) MEDROHIT ([facility] Glomerular Filtration Rate Laboratory test result Normal (applies to non- numeric results) NONI ([facility] ) <content>Units are mL/min/1.73 m2</content>
<content></content>
<content>Chronic Kidney Disease Staging per NKF:</content>
<content></content>
<content>Stage I & II GFR >=60 Normal to Mildly Decreased</content>
<content>Stage III GFR 30- 59 Moderately Decreased</content>
<content>Stage IV GFR 15-29 Severely Decreased</content>
<content>Stage V GFR <15 Very Little GFR Left</content>
<content>ESRD GFR <15 on GERIATRIC NURSE ASSISTANT</content>
<content></content> Creatinine For GFR 0.93 mg/dL 0.70-1.30 Normal (applies to non -numeric results) MEDENT ( [facility] Sodium Level 139 meq/L 136-145 Normal (applies to non-numeric res ults) MEDENT ([facility] Potassium Serum 3.8 meq/L 3.5-5.1 Normal (applies to non-numeric results) MEDENT ([facility] Anion Gap 9 meq/L 8-16 Normal (applies to non-numeric resul ts) MEDENT ( [facility] Carbon Dioxide Level 26 meq/L 21-32 Normal (applies to non-num kyra results) MEDENT ([facility] Chloride Level 104 meq/L 98-107 Normal (applies to non-numeric r esults) MEDENT ([facility] Alt/SGPT 45 U/L 12-78 Normal (applies to non-numeric resul ts) MEDENT ([facility] Ast/Sgot 18 U/L 7-37 Normal (applies to non-numeric resul ts) MEDENT ([facility] Calcium Level 8.9 mg/dL 8.5-10.1 Normal (applies to non-numeric re sults) [facility] Alkaline Phosphatase 86 U/L 45-117 Normal (applies to non-num kyra results) [facility] ([facility] Total Protein 6.7 GM/DL 6.4-8.2 Normal (applies to non-numeric re sults) MEDENT ([facility] Bilirubin,Total 0.4 mg/dL 0.2-1.0 Normal (applies to non-numeric results) [facility] Albumin 3.6 GM/DL 3.2-5.2 Normal (applies to non-numeric resul ts) MEDENT ([facility] Albumin/Globulin Ratio 1.2 Normal (applies to non-n umeric results) [facility] ([facility] ID Date Data Source [id number] 08/30/2020 10:02:00 AM EST MEDENT ([facility] Name Value Range Interpretation Code Description Data Sherry rce(s) Supporting Document(s) Lactate [Mass/volume] in Serum or Plasma 2.0 mmol/L 0.4-2.0 Normal (applies to non-numeric results) MEDENT ([facility]) Y/N query for Sepsis Lactate Rule: Y ID Date Data Source [id number] 08/26/2020 12:00:00 AM EST [facility] Name Value Range Interpretation Code Description Data Sherry rce(s) Supporting Document(s) SARS-CoV-2 (COVID-19) RNA [Presence] in Respiratory specimen by MARCK with probe detection Positive for 2019-nCoV [facility] This lab was ordered by [facility] and reported by [employer]. ID Date Data Source [id number] 08/15/2020 10:27:00 AM EST MEDENT ([facility] Name Value Range Interpretation Code Description Data Sherry rce(s) Supporting Document(s) Chol 208 mg/dL 0-200 Above high normal MEDENT ([facility] NORMAL RANGES Age WBC [...] 2-19 YEARS EXCLUSIVE. Trig 166 mg/dL 35-200 [facility] ([facility] NORMAL [...] HCT IS 5% LESS SOURCE FOR DATA: Gravitant 1800 OPERATION MANUAL( AUTOMATED BLOOD COUNTS AND [...] HCT IS 5% LESS SOURCE FOR DATA: Gravitant 1800 OPERATION MANUAL( AUTOMATED BLOOD COUNTS AND [...] 2-19 YEARS EXCLUSIVE. LDL_C 128 Calc 75-129 [facility] ([facility] NORMAL [...] HCT IS 5% LESS SOURCE FOR DATA: [employer] DYN 1800 OPERATION MANUAL( AUTOMATED BLOOD COUNTS [...] EXCLUSIVE. Cho/HDL Ratio 4.5 CALC NONI ([facility] NORMAL RANGES Age WBC RBC [...] HCT IS 5% LESS SOURCE FOR DATA: Gravitant 1800 OPERATION MANUAL( AUTOMATED BLOOD COUNTS AND [...] 2-19 YEARS EXCLUSIVE. ID Date Data Source [id number] 08/15/2020 10:27:00 AM EST MEDENT ([facility] Name Value Range Interpretation Code Description Data Sherry rce(s) Supporting Document(s) BUN 12 mg/dL 8- [facility] ([facility] NORMAL RANGES Age [...] HCT IS 5% LESS SOURCE FOR DATA: Gravitant 1800 OPERATION MANUAL( AUTOMATED BLOOD COUNTS AND [...] 2-19 YEARS EXCLUSIVE. Glu 110 mg/dL 70-110 [facility] ([facility] NORMAL [...] HCT IS 5% LESS SOURCE FOR DATA: Gravitant 1800 OPERATION MANUAL( AUTOMATED BLOOD COUNTS AND [...] EXCLUSIVE. BUN/Creatinine Ratio 13.3 CALC MEDENT ([facility] NORMAL RANGES Age [...] HCT IS 5% LESS SOURCE FOR DATA: Gravitant 1800 OPERATION MANUAL( AUTOMATED BLOOD COUNTS AND [...] 2-19 YEARS EXCLUSIVE. Creat 0.9 mg/dL 0.7-1.2 [facility] ([facility] NORMAL RANGES Age [...] HCT IS 5% LESS SOURCE FOR DATA: Gravitant 1800 OPERATION MANUAL( AUTOMATED BLOOD COUNTS AND [...] 2-19 YEARS EXCLUSIVE. K 4.1 mmol/L 3.5-5.1 [facility] NORMAL RANGES Age WBC [...] HCT IS 5% LESS SOURCE FOR DATA: [employer] DYN 1800 OPERATION MANUAL( AUTOMATED BLOOD COUNTS [...] 2-19 YEARS EXCLUSIVE. CL 104.8 mmol/L 98.0-107.0 [facility] ([facility] NORMAL RANGES Age WBC RBC [...] HCT IS 5% LESS SOURCE FOR DATA: Gravitant 1800 OPERATION MANUAL( AUTOMATED BLOOD COUNTS AND [...] 2-19 YEARS EXCLUSIVE. Na 138 mmol/L 136-145 [facility] ([facility] NORMAL RANGES Age WBC RBC [...] HCT IS 5% LESS SOURCE FOR DATA: Gravitant 1800 OPERATION MANUAL( AUTOMATED BLOOD COUNTS AND [...] 2-19 YEARS EXCLUSIVE. CA 9.0 mg/dL 8.6-10.2 [facility] ([facility] NORMAL [...] HCT IS 5% LESS SOURCE FOR DATA: [employer] DYN 1800 OPERATION MANUAL( AUTOMATED BLOOD COUNTS [...] HCT IS 5% LESS SOURCE FOR DATA: Gravitant 1800 OPERATION MANUAL( AUTOMATED BLOOD COUNTS AND [...] Co2 21.0 mmol/L 22.0-29.0 Below low normal [facility] ([facility] NORMAL RANGES Age WBC [...] HCT IS 5% LESS SOURCE FOR DATA: Gravitant 1800 OPERATION MANUAL( AUTOMATED BLOOD COUNTS AND [...] 2-19 YEARS EXCLUSIVE. A/G Ratio 1.9 CALC [facility] ([facility] NORMAL [...] HCT IS 5% LESS SOURCE FOR DATA: Gravitant 1800 OPERATION MANUAL( AUTOMATED BLOOD COUNTS AND [...] HCT IS 5% LESS SOURCE FOR DATA: Gravitant 1800 OPERATION MANUAL( AUTOMATED BLOOD COUNTS AND [...] HCT IS 5% LESS SOURCE FOR DATA: [employer] DYN 1800 OPERATION MANUAL( AUTOMATED BLOOD COUNTS [...] 2-19 YEARS EXCLUSIVE. Alp 83.1 U/L 40-129 [facility] ([facility] NORMAL [...] HCT IS 5% LESS SOURCE FOR DATA: Gravitant 1800 OPERATION MANUAL( AUTOMATED BLOOD COUNTS AND [...] HCT IS 5% LESS SOURCE FOR DATA: Gravitant 1800 OPERATION MANUAL( AUTOMATED BLOOD COUNTS AND [...] YEARS EXCLUSIVE. Ast (Sgot) 23 U/L 0-40 [facility] ([facility] NORMAL RANGES Age WBC [...] HCT IS 5% LESS SOURCE FOR DATA: [employer] DYN 1800 OPERATION MANUAL( AUTOMATED BLOOD COUNTS [...] 2-19 YEARS EXCLUSIVE. Tbili 0.54 mg/dL 0.0-1.2 [facility] ([facility] NORMAL RANGES Age [...] HCT IS 5% LESS SOURCE FOR DATA: Gravitant 1800 OPERATION MANUAL( AUTOMATED BLOOD COUNTS AND [...] HCT IS 5% LESS SOURCE FOR DATA: Gravitant 1800 OPERATION MANUAL( AUTOMATED BLOOD COUNTS AND [...] HCT IS 5% LESS SOURCE FOR DATA: [employer] DYN 1800 OPERATION MANUAL( AUTOMATED BLOOD COUNTS [...] HCT IS 5% LESS SOURCE FOR DATA: Gravitant 1800 OPERATION MANUAL( AUTOMATED BLOOD COUNTS AND [...] INDIVIDUALA AGED 2-19 YEARS EXCLUSIVE. eGFR Non-Afr. Croatian 96 # MEDENT ([facility] [...] HCT IS 5% LESS SOURCE FOR DATA: Gravitant 1800 OPERATION MANUAL( AUTOMATED BLOOD COUNTS AND [...] 2-19 YEARS EXCLUSIVE. ID Date Data Source [id number] 08/15/2020 10:27:00 AM NAOMI CHENEY ([facility] Name Value Range Interpretation Code Description Data Sherry rce(s) Supporting Document(s) WBC 6.2 10E3/uL 4.1-10.9 NONI ([facility] NORMAL RANGES Age WBC [...] HCT IS 5% LESS SOURCE FOR DATA: Gravitant 1800 OPERATION MANUAL( AUTOMATED BLOOD COUNTS AND [...] EXCLUSIVE. RBC 4.95 10E6/uL 4.20-6.30 MED[facility] ([facility] NORMAL RANGES Age WBC [...] HCT IS 5% LESS SOURCE FOR DATA: Gravitant 1800 OPERATION MANUAL( AUTOMATED BLOOD COUNTS AND [...] 2-19 YEARS EXCLUSIVE. HGB 15.6 g/dL 12.0-18.0 [facility] ([facility] NORMAL RANGES Age WBC [...] HCT IS 5% LESS SOURCE FOR DATA: Gravitant 1800 OPERATION MANUAL( AUTOMATED BLOOD COUNTS AND [...] 2-19 YEARS EXCLUSIVE. HCT 45.3 % 37.0-51.0 [facility] ([facility] NORMAL [...] HCT IS 5% LESS SOURCE FOR DATA: Gravitant 1800 OPERATION MANUAL( AUTOMATED BLOOD COUNTS AND [...] HCT IS 5% LESS SOURCE FOR DATA: Gravitant 1800 OPERATION MANUAL( AUTOMATED BLOOD COUNTS AND [...] 2-19 YEARS EXCLUSIVE. MCV 91.5 fL 80.0-97.0 [facility] ([facility] NORMAL [...] 2-19 YEARS EXCLUSIVE. MCHC 34.4 g/dL 31.0-36.0 [facility] ([facility] NORMAL [...] HCT IS 5% LESS SOURCE FOR DATA: Gravitant 1800 OPERATION MANUAL( AUTOMATED BLOOD COUNTS AND [...] YEARS EXCLUSIVE. PLT 228 10E3/uL 140-440 MEDENT ([facility] NORMAL RANGES Age WBC [...] HCT IS 5% LESS SOURCE FOR DATA: Gravitant 1800 OPERATION MANUAL( AUTOMATED BLOOD COUNTS AND [...] 2-19 YEARS EXCLUSIVE. RDW-CV 13.2 % 11.5-14.5 [facility] ([facility] NORMAL [...] HCT IS 5% LESS SOURCE FOR DATA: [employer] DYN 1800 OPERATION MANUAL( AUTOMATED BLOOD COUNTS [...] 2-19 YEARS EXCLUSIVE. Lym% 25.2 % 10.0-58.5 [facility] ([facility] NORMAL [...] HCT IS 5% LESS SOURCE FOR DATA: Gravitant 1800 OPERATION MANUAL( AUTOMATED BLOOD COUNTS AND [...] HCT IS 5% LESS SOURCE FOR DATA: Gravitant 1800 OPERATION MANUAL( AUTOMATED BLOOD COUNTS AND [...] 2-19 YEARS EXCLUSIVE. Neut% 65.9 % 37.0-92.0 [facility] ([facility] NORMAL [...] HCT IS 5% LESS SOURCE FOR DATA: Gravitant 1800 OPERATION MANUAL( AUTOMATED BLOOD COUNTS AND [...] 2-19 YEARS EXCLUSIVE. MXD# 0.6 10E3/uL 0.0-1.8 [facility] ([facility] NORMAL RANGES Age WBC [...] HCT IS 5% LESS SOURCE FOR DATA: Gravitant 1800 OPERATION MANUAL( AUTOMATED BLOOD COUNTS AND [...] YEARS EXCLUSIVE. Lym# 1.6 10E3/uL 0.6-4.1 MEDROHIT ([facility] NORMAL RANGES Age WBC [...] HCT IS 5% LESS SOURCE FOR DATA: Gravitant 1800 OPERATION MANUAL( AUTOMATED BLOOD COUNTS AND [...] 2-19 YEARS EXCLUSIVE. Neut# 4.0 % 2.0-7.8 [facility] ([facility] NORMAL [...] HCT IS 5% LESS SOURCE FOR DATA: Gravitant 1800 OPERATION MANUAL( AUTOMATED BLOOD COUNTS AND [...] 2-19 YEARS EXCLUSIVE. MPV 10.5 fL 9.0-13.0 [facility] ([facility] NORMAL [...] HCT IS 5% LESS SOURCE FOR DATA: Gravitant 1800 OPERATION MANUAL( AUTOMATED BLOOD COUNTS AND [...] 2-19 YEARS EXCLUSIVE. ID Date Data Source [id number] 08/15/2020 10:27:00 AM EST MEDROHIT ([facility] [...] co mpleted Patient has never smoked MEDENT ([facility]) Vital Signs ID Date Data Source UNK Name Value Range Interpretation Code Description Data Source(s) Body mass index (BMI) [Ratio] 44.85 kg/m2 44.85 kg/m2 eCW1 ([facility]) Body height 68 [in_i] 68 [in_i] eCW1 ([facility]) Body weight 295 [lb_av] 295 [lb_av] eCW1 ([facility]) Oxygen saturation in Arterial blood by Pulse oximetry 97 % 97 % MEDENT ([facility] Body mass index (BMI) [Ratio] 46.8 kg/m2 46.8 k g/m2 MEDENT ([facility] Balmorhea body weight 154 [lb_av] 154 [lb_av] MEDEN T ([facility] Body weight 308.00 [lb_av] 308.00 [lb_av] MEDEN T ([facility] Body height 68 [in_i] 68 [in_i] MEDENT ([facility] 5'8" Respiratory rate [...] k g/m2 MEDENT ([facility] [place] body weight 154 [lb_av] 154 [lb_av] MEDEN T ([facility] Body weight 306.00 [lb_av] 306.00 [lb_av] MEDEN T ([facility] Body height 68 [in_i] 68 [in_i] MEDENT ([facility] 5'8" Respiratory rate [...] k g/m2 MEDENT ([facility] [place] body weight 154 [lb_av] 154 [lb_av] MEDEN T ([facility] Body weight 310.00 [lb_av] 310.00 [lb_av] MEDEN T ([facility] Body height 68 [in_i] 68 [in_i] MEDENT ([facility] 5'8" Respiratory rate 18 /min 18 /min MEDENT ( [facility] Heart rate 90 /min 90 /min MEDENT ([facility] Body temperature 98.3 [degF] 98.3 [degF] MEDENT ([facility] Diastolic blood pressure 92 mm[Hg] 92 mm[Hg] MEDENT ([facility] Systolic blood pressure 124 mm[Hg] 124 mm[Hg] M EDENT ([facility] Body mass index (BMI) [Ratio] 41.0 kg/m2 41.0 k g/m2 MEDENT ([facility]) Body height 68 [in_i] 68 [in_i] MEDENT ([facility]) 5'8" Body weight 270.00 [lb_av] 270.00 [lb_av] MEDEN T ([facility]) Body temperature 97.8 [degF] 97.8 [degF] MEDENT ([facility]) Oxygen saturation in Arterial blood by Pulse oximetry 97 % 97 % MEDENT ([facility]) Respiratory rate 16 /min 16 /min MEDENT ( [facility]) Heart rate 84 /min 84 /min MEDENT ([facility]) Diastolic blood pressure 102 mm[Hg] 102 mm[Hg] MEDENT ([facility]) Systolic blood pressure 149 mm[Hg] 149 mm[Hg] M EDENT ([facility]) Oxygen saturation in Arterial blood by Pulse oximetry 98 % 98 % MEDENT ([facility] Body mass index (BMI) [Ratio] 42.7 kg/m2 42.7 k g/m2 MEDENT ([facility] [place] body weight 154 [lb_av] 154 [lb_av] MEDEN T ([facility] Body weight 281.00 [lb_av] 281.00 [lb_av] MEDEN T ([facility] Body height 68 [in_i] 68 [in_i] MEDENT ([facility] 5'8" Respiratory rate 18 /min 18 /min MEDENT ( [facility] Heart rate 88 /min 88 /min NONI ([facility] Body temperature 97.8 [degF] 97.8 [degF] NONI ([facility] Diastolic blood pressure 80 mm[Hg] 80 mm[Hg] NONI ([facility] Systolic blood pressure 136 mm[Hg] 136 mm[Hg] Savage BENTLEY ([facility]
[2020-09-07 11:55] LABS: BASO # 0.1 10^3/uL (0.0-0.2); EOS # 0.2 10^3/uL (0.0-0.5); EOS % 2.2 % (0.0-3.0); HEMATOCRIT 41.7 % (42.0-52.0); HEMOGLOBIN 14.3 g/dl (13.5-17.5); LYMPH # 1.8 10^3/uL (1.5-5.0); LYMPH % 25.6 % (24.0-44.0); MEAN CORPUSCULAR HEMOGLOBIN 30.5 pg (27.0-33.0); MEAN CORPUSCULAR HGB CONC 34.3 g/dl (32.0-36.5); MEAN CORPUSCULAR VOLUME 88.9 fl (80.0-96.0); MONO # 0.5 10^3/uL (0.0-0.8); MONO % 7.6 % (0.0-5.0); NEUTROPHILS # 4.2 10^3/uL (1.5-8.5); NEUTROPHILS % 61.4 % (36.0-66.0); PLATELET COUNT, AUTOMATED 321 10^3/uL (150-450); RED BLOOD COUNT 4.69 10^6/uL (4.30-6.10); WHITE BLOOD COUNT 6.8 10^3/uL (4.0-10.0)
[2020-09-07 12:26] LABS: BLOOD UREA NITROGEN 12 MG/DL (7-18); CALCIUM LEVEL 9.4 MG/DL (8.5-10.1); CARBON DIOXIDE LEVEL 26 MEQ/L (21-32); CHLORIDE LEVEL 104 MEQ/L (98-107); CREATININE FOR GFR 0.88 MG/DL (0.70-1.30); GLOMERULAR FILTRATION RATE > 60.0 (>56); GLUCOSE, FASTING 99 MG/DL (70-100); POTASSIUM SERUM 3.9 MEQ/L (3.5-5.1); SODIUM LEVEL 140 MEQ/L (136-145)
[2020-09-07 13:29] VITALS: BP 136/84
== END 2020-09-07 13:30 | disposition home or self-care (01) ==
LOC: M ED 10:47
DX: U07.1 COVID-19 (principal); R50.9 Fever, unspecified; I10 Essential (primary) hypertension; E66.9 Obesity, unspecified

== ENCOUNTER → 2020-10-15 | Outpatient (CLI) | payer OTHER ==
[~2020-10-15] MED LIST changes: +ACET-683 PO
--- NOTE | 2020-10-15 11:52 | REP ---
INDICATION: DISC DEGENAERATION, R/O HNP/STENOSIS. COMPARISON: Comparison lumbar spine radiographs are from July 18, 2020.. TECHNIQUE: Sagittal and axial T1 and T2-weighted scans are acquired in the usual fashion with and without fat saturation. Sequences include spin echo, turbo spin-echo, and STIR imaging sequences. FINDINGS: Lumbar vertebral body heights are preserved. No fracture or collapse is seen. There are degenerative disc changes again noted at L3-4 with disc space narrowing and decreased disc space signal intensity. There is a bilateral pars defect at L3. There is very subtle 2 mm L3-4 spondylolisthesis, grade 1. At the L3-4 level, there is a right paracentral focal disc protrusion producing mild thecal sac compression. There is protrusion of the foraminal segment of the disc margin on the right producing right-sided neural foraminal narrowing. There is mild central canal stenosis at L3-4. Midline AP dimension of the thecal sac at the L3-4 level is 10.6 mm. There is facet hypertrophy bilaterally. At L4-5, no disc protrusion is seen. No thecal sac compression is observed. No neural foraminal narrowing or spinal stenosis seen. At L5-S1, there is mild degenerative disc disease with decreased signal intensity and height of the disc. There is minimal central disc bulging. Mild facet hypertrophy is present bilaterally at L5-S1. No spinal stenosis is seen. No neural foraminal narrowing is observed. At the L2-3 level, there is no evidence of disc protrusion, spinal stenosis, or foraminal narrowing. Pedicles and posterior elements are otherwise intact. IMPRESSION: Bilateral L3 spondylolysis and grade 1, 2 mm L3-4 spondylolisthesis confirmed. There is right paracentral and right lateral and foraminal disc protrusion at L3-4 producing right-sided foraminal encroachment. There is mild central canal stenosis at L3-4. Bilateral facet hypertrophy is present at L5-S1. No other significant finding. <Electronically signed by Nathaniel Weiss > 10/15/20 [id number]
== END ==
LOC: M RAD 10:07
PROVIDERS: ATTEND Orthopaedic Surgery
DX: M43.06 Spondylolysis, lumbar region (principal); M51.26 Other intervertebral disc displacement, lumbar region; M48.061 Spinal stenosis, lumbar region without neurogenic claudication; M89.38 Hypertrophy of bone, other site; M51.36 Other intervertebral disc degeneration, lumbar region

== ENCOUNTER → 2022-01-04 | Outpatient (CLI) | payer OTHER ==
[~2022-01-04] MED LIST changes: +MELO15TA28 PO
== END ==
LOC: M LABSMTC 09:05
PROVIDERS: ATTEND Anesthesiology
DX: Z20.828 Contact with and (suspected) exposure to other viral communicable diseases (principal); Z11.59 Encounter for screening for other viral diseases

== ENCOUNTER → 2022-04-30 | Outpatient (CLI) | payer OTHER | LOC: M LABSMTC 09:42 | PROVIDERS: ATTEND Anesthesiology | DX: Z01.812 Encounter for preprocedural laboratory examination (principal); Z11.52 Encounter for screening for COVID-19 ==

== ENCOUNTER 2022-05-05 07:29 | Day surgery (SDC) | payer OTHER ==
[~2022-05-05] VITALS: Ht 172.7 cm; Wt 123.8 kg
[~2022-05-05 07:29] MED LIST changes: +LIDOCAINE 2% 100MG/5ML SDV (FOR ANES.) As Ordered ONE; +NS 1,000 ML IV ONE; +propofoL 200 MG/20 ML VIAL As Ordered ONE
[2022-05-05] MEDS ORDERED: propofoL 200 MG/20 ML VIAL As Ordered ONE (09:16)
[2022-05-05 09:41] VITALS: BP 120/74
== END 2022-05-05 09:44 | disposition home or self-care (01) ==
LOC: M OPP 07:29
PROVIDERS: ATTEND Internal Medicine Gastroenterology
DX: Z12.11 Encounter for screening for malignant neoplasm of colon (principal); Z86.010 Personal history of colon polyps; K64.0 First degree hemorrhoids; K57.30 Diverticulosis of large intestine without perforation or abscess without bleeding; Z79.1 Long term (current) use of non-steroidal anti-inflammatories (NSAID)

== ENCOUNTER → 2022-08-25 | Outpatient (CLI) | payer OTHER ==
[~2022-08-25] MED LIST changes: -LIDOCAINE 2% 100MG/5ML SDV (FOR ANES.) As Ordered ONE; -NS 1,000 ML IV ONE; -propofoL 200 MG/20 ML VIAL As Ordered ONE
[2022-08-25 12:55] LABS: BASO % 0.6 % (0.0-1.0); EOS # 0.2 10^3/uL (0.0-0.5); EOS % 2.2 % (0.0-3.0); HEMATOCRIT 46.4 % (42.0-52.0); HEMOGLOBIN 15.3 g/dl (13.5-17.5); LYMPH # 1.5 10^3/uL (1.5-5.0); LYMPH % 22.7 % (24.0-44.0); MEAN CORPUSCULAR HEMOGLOBIN 31.1 pg (27.0-33.0); MEAN CORPUSCULAR VOLUME 94.3 fl (80.0-96.0); MONO # 0.4 10^3/uL (0.0-0.8); MONO % 6.5 % (2.0-8.0); NEUTROPHILS # 4.6 10^3/uL (1.5-8.5); NEUTROPHILS % 67.6 % (36.0-66.0); PLATELET COUNT, AUTOMATED 241 10^3/uL (150-450); RED BLOOD COUNT 4.92 10^6/uL (4.30-6.10); WHITE BLOOD COUNT 6.8 10^3/uL (4.0-10.0)
[2022-08-25 13:18] LABS: PROSTATIC SPECIFIC AG MONITOR 0.44 NG/ML (< 4.00)
[2022-08-25 13:22] LABS: ALKALINE PHOSPHATASE 76 U/L (46-116); ALT/SGPT 24 U/L (7.0-40); AST/SGOT 19 U/L (<34); BILIRUBIN,TOTAL 0.6 MG/DL (0.3-1.2); BLOOD UREA NITROGEN 19 MG/DL (9-23); CARBON DIOXIDE LEVEL 28 MMOL/L (20-31); CHLORIDE LEVEL 106 MMOL/L (98-107); CHOLESTEROL LEVEL 146 MG/DL (<200); CHOLESTEROL RISK RATIO 3.67 (<5); CREATININE FOR GFR 0.87 MG/DL (0.70-1.30); GLOMERULAR FILTRATION RATE > 60.0 (>56); GLUCOSE, FASTING 99 MG/DL (60-100); HDL CHOLESTEROL 39.7 MG/DL (>40); LDL CHOLESTEROL 87.3 MG/DL (<100); NON-HDL-C 106 MG/DL; POTASSIUM SERUM 4.6 MMOL/L (3.5-5.1); SODIUM LEVEL 142 MMOL/L (136-145); TOTAL PROTEIN 6.7 G/DL (5.7-8.2); TRIGLYCERIDES LEVEL 95 MG/DL (<150)
[2022-08-25 13:23] LABS: THYROID STIMULATING HORMONE 1.009 uIU/ML (0.55-4.78)
== END ==
LOC: M WUC 09:45
PROVIDERS: ATTEND Physician Assistant
DX: Z00.01 Encounter for general adult medical examination with abnormal findings (principal); E78.5 Hyperlipidemia, unspecified; E55.9 Vitamin D deficiency, unspecified; R35.1 Nocturia

== ENCOUNTER → 2023-04-25 | Outpatient (REF) | payer OTHER | LOC: M LAB REF 20:16 | PROVIDERS: ATTEND Physician Assistant | DX: R30.0 Dysuria (principal) ==

== ENCOUNTER → 2023-04-30 | Outpatient (CLI) | payer OTHER | LOC: M LAB 16:41 | PROVIDERS: ATTEND Physician Assistant | DX: M13.0 Polyarthritis, unspecified (principal) ==

== ENCOUNTER → 2023-06-29 | Outpatient (REF) | payer OTHER ==
[2023-06-29 10:54] LABS: APPEARANCE, URINE CLEAR (CLEAR); BACTERIA, URINE AUTO NEGATIVE (NEGATIVE); BILIRUBIN, URINE AUTO NEGATIVE (NEGATIVE); BLOOD, URINE BLOOD NEGATIVE (NEGATIVE); COLOR, URINE YELLOW (YELLOW); GLUCOSE, URINE (UA) AUTO NEGATIVE (NEGATIVE); KETONE, URINE AUTO NEGATIVE (NEGATIVE); LEUKOCYTE ESTERASE, URINE AUTO TRACE (NEGATIVE); NITRITE, URINE AUTO NEGATIVE (NEGATIVE); PROTEIN, URINE AUTO NEGATIVE (NEGATIVE); RBC, URINE AUTO 0 /HPF (0-3); SPECIFIC GRAVITY URINE AUTO 1.009 (1.002-1.035); SQUAMOUS EPITHELIAL CELL UR AU 0 /HPF (0-6); UROBILINOGEN, URINE AUTO 0.2 mg/dL (0.0-2.0); WBC, URINE AUTO 2 /HPF (0-3)
== END ==
LOC: M SMT 10:03
PROVIDERS: ATTEND Physician Assistant
DX: R31.0 Gross hematuria (principal)

== ENCOUNTER → 2023-07-06 | Outpatient (CLI) | payer OTHER ==
[2023-07-06 10:11] LABS: BLOOD UREA NITROGEN 15 MG/DL (9-23); CALCIUM LEVEL 9.4 MG/DL (8.5-10.1); CARBON DIOXIDE LEVEL 30 MMOL/L (20-31); CHLORIDE LEVEL 105 MMOL/L (98-107); CREATININE FOR GFR 0.91 MG/DL (0.70-1.30); GLOMERULAR FILTRATION RATE > 60.0 (>56); GLUCOSE, FASTING 101 MG/DL (60-100); POTASSIUM SERUM 4.8 MMOL/L (3.5-5.1); SODIUM LEVEL 143 MMOL/L (136-145)
== END ==
LOC: M LAB 08:24
PROVIDERS: ATTEND Physician Assistant
DX: R31.0 Gross hematuria (principal)

== ENCOUNTER → 2023-07-13 | Outpatient (CLI) | payer OTHER ==
[~2023-07-13] MED LIST changes: +ISOVUE-370 76% 100ML VIAL As Ordered ONE
== END ==
LOC: M RAD 08:43
PROVIDERS: ATTEND Physician Assistant
DX: R31.0 Gross hematuria (principal)
CPT/HCPCS: 74178; Q9967

== ENCOUNTER → 2023-09-07 | Outpatient (CLI) | payer OTHER ==
[~2023-09-07] MED LIST changes: -ISOVUE-370 76% 100ML VIAL As Ordered ONE
[2023-09-07 15:26] LABS: HEMATOCRIT 47.2 % (42.0-52.0); HEMOGLOBIN 15.8 g/dl (13.5-17.5); MEAN CORPUSCULAR HEMOGLOBIN 31.6 pg (27.0-33.0); MEAN CORPUSCULAR HGB CONC 33.5 g/dl (32.0-36.5); MEAN CORPUSCULAR VOLUME 94.4 fl (80.0-96.0); PLATELET COUNT, AUTOMATED 245 10^3/uL (150-450); WHITE BLOOD COUNT 6.2 10^3/uL (4.0-10.0)
[2023-09-07 15:44] LABS: THYROID STIMULATING HORMONE 1.905 uIU/ML (0.55-4.78)
[2023-09-07 15:48] LABS: ALBUMIN 3.8 G/DL (3.2-5.2); ALKALINE PHOSPHATASE 78 U/L (46-116); ALT/SGPT 41 U/L (7.0-40); AST/SGOT 21 U/L (<34); BILIRUBIN,TOTAL 0.5 MG/DL (0.3-1.2); BLOOD UREA NITROGEN 14 MG/DL (9-23); CARBON DIOXIDE LEVEL 29 MMOL/L (20-31); CHLORIDE LEVEL 108 MMOL/L (98-107); CHOLESTEROL LEVEL 196 MG/DL (<200); CHOLESTEROL RISK RATIO 4.51 (<5); CREATININE FOR GFR 0.86 MG/DL (0.70-1.30); GLOMERULAR FILTRATION RATE > 60.0 (>56); GLUCOSE, FASTING 98 MG/DL (60-100); HDL CHOLESTEROL 43.4 MG/DL (>40); LDL CHOLESTEROL 116.2 MG/DL (<100); NON-HDL-C 152.6 MG/DL; POTASSIUM SERUM 4.3 MMOL/L (3.5-5.1); SODIUM LEVEL 140 MMOL/L (136-145); TOTAL PROTEIN 6.7 G/DL (5.7-8.2); TRIGLYCERIDES LEVEL 182 MG/DL (<150)
== END ==
LOC: M WUC 10:01
PROVIDERS: ATTEND Physician Assistant
DX: Z00.01 Encounter for general adult medical examination with abnormal findings (principal); E78.5 Hyperlipidemia, unspecified

== ENCOUNTER → 2024-10-03 | Outpatient (CLI) | payer OTHER ==
[2024-10-03 12:09] LABS: HEMATOCRIT 47.8 % (42.0-52.0); MEAN CORPUSCULAR HEMOGLOBIN 31.8 pg (27.0-33.0); MEAN CORPUSCULAR HGB CONC 33.5 g/dl (32.0-36.5); PLATELET COUNT, AUTOMATED 237 10^3/uL (150-450); RED BLOOD COUNT 5.03 10^6/uL (4.30-6.10)
[2024-10-03 12:32] LABS: APPEARANCE, URINE CLEAR (CLEAR); BACTERIA, URINE AUTO 1+ (NEGATIVE); BILIRUBIN, URINE AUTO NEGATIVE (NEGATIVE); BLOOD, URINE BLOOD NEGATIVE (NEGATIVE); COLOR, URINE YELLOW (YELLOW); GLUCOSE, URINE (UA) AUTO NEGATIVE (NEGATIVE); KETONE, URINE AUTO NEGATIVE (NEGATIVE); LEUKOCYTE ESTERASE, URINE AUTO NEGATIVE (NEGATIVE); NITRITE, URINE AUTO NEGATIVE (NEGATIVE); PROTEIN, URINE AUTO NEGATIVE (NEGATIVE); RBC, URINE AUTO 1 /HPF (0-3); SPECIFIC GRAVITY URINE AUTO 1.017 (1.002-1.035); SQUAMOUS EPITHELIAL CELL UR AU 0 /HPF (0-6); UROBILINOGEN, URINE AUTO 0.2 mg/dL (0.0-2.0); WBC, URINE AUTO 3 /HPF (0-3)
[2024-10-03 12:41] LABS: PROSTATIC SPECIFIC AG MONITOR 0.57 NG/ML (< 4.00)
[2024-10-03 12:46] LABS: ALBUMIN 4.1 G/DL (3.2-5.2); ALKALINE PHOSPHATASE 89 U/L (40-129); ALT/SGPT 24 U/L (7.0-40); AST/SGOT 14 U/L (<34); BILIRUBIN,TOTAL 0.8 MG/DL (0.3-1.2); BLOOD UREA NITROGEN 17 MG/DL (9-23); CALCIUM LEVEL 9.4 MG/DL (8.5-10.1); CARBON DIOXIDE LEVEL 29 MMOL/L (20-31); CHLORIDE LEVEL 106 MMOL/L (98-107); CHOLESTEROL LEVEL 152 MG/DL (<200); CHOLESTEROL RISK RATIO 3.74 (<5); CREATININE FOR GFR 0.81 MG/DL (0.70-1.30); GLOMERULAR FILTRATION RATE > 60.0 (>56); GLUCOSE, FASTING 109 MG/DL (60-100); HDL CHOLESTEROL 40.6 MG/DL (>40); LDL CHOLESTEROL 88.8 MG/DL (<100); NON-HDL-C 111.4 MG/DL; POTASSIUM SERUM 4.4 MMOL/L (3.5-5.1); SODIUM LEVEL 144 MMOL/L (136-145); TOTAL PROTEIN 7.2 G/DL (5.7-8.2); TRIGLYCERIDES LEVEL 113 MG/DL (<150)
[2024-10-03 12:47] LABS: TOTAL 25(OH) VITAMIN D 59.5 NG/ML (20.0-100.0)
[2024-10-04 06:54] LABS: WHITE BLOOD COUNT 6.5 10^3/uL (4.0-10.0)
== END ==
LOC: M WUC 09:49
PROVIDERS: ATTEND Physician Assistant
DX: Z00.01 Encounter for general adult medical examination with abnormal findings (principal); E55.9 Vitamin D deficiency, unspecified; E78.5 Hyperlipidemia, unspecified; R35.1 Nocturia

== ENCOUNTER → 2025-02-23 | Outpatient (CLI) | payer OTHER ==
[2025-02-23 13:16] LABS: BASO # 0.1 10^3/uL (0.0-0.2); BASO % 1.1 % (0.0-1.0); EOS # 0.2 10^3/uL (0.0-0.5); EOS % 3.1 % (0.0-3.0); LYMPH # 1.9 10^3/uL (1.5-5.0); LYMPH % 30.3 % (24.0-44.0); MONO # 0.6 10^3/uL (0.0-0.8); MONO % 9.2 % (2.0-8.0); NEUTROPHILS # 3.6 10^3/uL (1.5-8.5); NEUTROPHILS % 56.1 % (36.0-66.0); PLATELET COUNT, AUTOMATED 230 10^3/uL (150-450)
[2025-02-23 13:40] LABS: IRON (FE) 123.0 UG/DL (65-175); PERCENT SATURATION 44.1 % (19.7-50.0)
== END ==
LOC: M WUC 08:09
PROVIDERS: ATTEND Orthopaedic Surgery
DX: Z01.818 Encounter for other preprocedural examination (principal); M16.11 Unilateral primary osteoarthritis, right hip; M25.551 Pain in right hip